=== PATIENT | female | born 1995 | race Caucasian/White ===

== ENCOUNTER 2019-10-07 06:03 | Day surgery (SDC) | payer OTHER, SELFPAY ==
[2019-09-23 10:01] VITALS: BMI 24.5
[2019-10-07 06:15] VITALS: BP 123/78; PULSE 86; RESP 18; TEMP 36.2; O2SAT 98
[2019-10-07 06:20] LABS: OR HCG Qualitative Urine Negative (Negative)
[2019-10-07] MEDS: sodium chloride 0.9% 1,000 ML 30 ML IV (06:28)
--- NOTE | 2019-10-07 06:48 | ANES.PREANE2 ---
Pre-Anesthetic Assessment Pre-Anesthetic Assessment: Height/Weight: Height 1.7 m Weight 71.214 kg Temp Pulse Resp BP Pulse Ox 97.2 F L 86 18 123/78 98 10/07/19 06:15 10/07/19 06:15 10/07/19 06:15 10/07/19 06:15 10/07/19 06:15 Preop Diagnosis: rlq pain Proposed Procedure: Operation Date: 10/07/19 07:00 Proposed Procedures p Colonoscopy 66861 R14.0(Not Applicable) - Neil Agosto MD Was Beta María Elena taken within 24 hours: N/A Last intake: Intake Last Liquid Date 10/06/19 Last Liquid Time 20:00 Last Solid Date 10/05/19 Last Solid Time 18:00 Social: Social History: Tobacco and No alcohol Exam: Pre-Anes Outpt Exam: alert, oriented x 3, clear to auscultation bilaterally and regular rate & rhythm Airway: Submandibular: WNL Cervical ROM: WNL MP: 1 Dentition: Chipped (upper back side) and Full Pulmonary: Pulmonary: None reported CV/HEM: CV/HEM: Arrythmia and Murmur Comments: admits to tachycardia and dizziness was on lisinopril and then on holter monitor but did not follow up because patient says they were too busy : : UTI Comments: macrobid and admits to kidney stones Hepatic: Hepatic: None reported GI: GI: None reported Metabolic: Metabolic: None reported Musc/skel: Musc/skel: None reported Neuropsych: Neuropsych: Anxiety, Depression and LAMAR (chronic migraines) Anesthetic Plan: ASA status: 2 Anesthesia: MAC Risk of > 500 ml blood loss (7ml/kg in children): No Meds/Allergies Current Medications: Current Medications Generic Name Dose Route Start Last Admin Trade Name Freq PRN Reason Stop Dose Admin Sodium Chloride 1,000 mls @ 30 ml s/hr 10/07/19 06:15 10/07/19 06:28 Sodium Chloride 0.9% IV 10/08/19 06:14 30 mls/hr .Q24H NENA Administration PFSH Anesthesia PFSH: Medical History (Updated 09/21/19 @ 13:03 by Neil Agosto MD) Pyelonephritis Renal and ureteric calculus Surgical History (Updated 09/19/19 @ 13:21 by Neil Agosto MD) History of ureter stent Hx of cholecystectomy Family History Mother Asthma Heart murmur Atrial fibrillation Denies family history of Anesthesia complication Bleeding disorder Social History Smoking and tobacco status: current some day smoker cigarettes Alcohol intake: never Household members: spouse Marital status: Current occupational status: employed History of recent travel: No Female Reproductive History: Date of last menstrual period: 09/15/19 Data Anesthesia Other Labs: Laboratory Results - last 48 hr 10/07/19 06:20 Urine HCG, Qual Negative Cardiac Studies: No Data to Display
--- NOTE | 2019-10-07 06:58 | W.PM.OPSUD ---
Surgery/Procedure H&P Update DATE OF PROCEDURE: October 07, 2019 DATE H&P PERFORMED: 09/19/19 H&P UPDATE INFORMATION: I have reviewed H&P completed within last 30 days, I have examined patient prior to procedure and No changes to prior documentation PREOP DIAGNOSIS: rlq pain PLANNED PROCEDURE: Operation Date: 10/07/19 07:00 Proposed Procedures p Colonoscopy 67915 R14.0(Not Applicable) - Neil Agosto MD
[2019-10-07 07:23] VITALS: BP 100/72; PULSE 91; RESP 16; TEMP 36.1; O2SAT 99
--- NOTE | 2019-10-07 07:25 | ANE.PACU2 ---
Inpatient post-anesthesia follow up: Airway intact: Yes Vital signs: Temperature 97.0 F Pulse Rate 91 Respiratory Rate 16 Blood Pressure 100/72 Pulse Oximetry 99 Oxygen Delivery Me thod Nasal Cannula Oxygen Flow Rate 3 Fraction of Inspir ed Oxygen Hydration adequate: Yes Nausea and vomiting: No Pain level: 1 Mental status: Baseline
[2019-10-07 07:29] VITALS: BP 104/77; PULSE 82; RESP 18; O2SAT 97
== END 2019-10-07 07:37 | disposition home or self-care (01) ==
PROVIDERS: Anesthesiology; PCP Nurse Practitioner Family; Visit Provider Surgery
PROC: 0DJD8ZZ Inspection of Lower Intestinal Tract, Via Natural or Artificial Opening Endoscopic (ICD-10-PCS; CPT 45378; principal; 2019-10-07 07:00)
DX: R10.31 Right lower quadrant pain (principal); R14.0 Abdominal distension (gaseous); F17.210 Nicotine dependence, cigarettes, uncomplicated
CPT/HCPCS: 12345; 45380; 84703; 88305; J2704; J7030

== ENCOUNTER 2020-04-14 14:31 | Outpatient (CLI) | payer OTHER, SELFPAY ==
--- NOTE | 2020-04-14 15:00 | XR_ITS ---
WS: [id number] KUB, AP view, 04/14/2020 Clinical Data: STONE Comparison: KUB, 12/26/2018. Findings: No abnormal intraabdominal masses are seen. There is no dilatated small bowel or evidence of obstruc tion. There is a calcification overlying the inferior pole of the left kidney which may be a renal calculus . There is a large amount of fecal material in the colon. There are clips in the right upper quadrant from cholecystectomy. XR/XR KUB [id number] Impression: Possible small left renal calculus.
== END 2020-04-14 14:32 | disposition home or self-care (01) ==
PROVIDERS: PCP Nurse Practitioner Family; Visit Provider Urology
DX: N20.9 Urinary calculus, unspecified (principal)
CPT/HCPCS: 74018; 81003; 87077; 87086; 87184

== ENCOUNTER 2020-08-24 19:02 | Emergency (ER) | payer OTHER, SELFPAY ==
[2020-08-24 19:12] VITALS: BP 102/70; PULSE 83; RESP 18; TEMP 36.1; O2SAT 99; BMI 20.3
--- NOTE | 2020-08-24 19:19 | ED_ITS ---
HPI - Headache General: Chief Complaint: Headache Stated Complaint: Pressure in Head Time Seen by Provider: 08/24/20 19:18 History of Present Illness: HPI Narrative: 24-year-old female comes in with right-sided head pain for about 1 month. Patient states for last 5 days it is worsened. Patient reports that this is worse than her usual migraines. Patient appears well. Patient appears in mild to moderate pain. Patient reports nothing improves or worsens pain. Patient does state this is different than her usual migraines. Patient denies taking routine medications. Patient is alert and oriented. MD elicited complaint: headache Review of Systems General: Reports: 10 or more systems reviewed and unremarkable except in HPI and below Neuro: Reports: headache(s) PFSH ED PFSH: Medical History Pyelonephritis Recurrent UTI Renal and ureteric calculus Renal stones Surgical History History of ureter stent Hx of cholecystectomy Status post colonoscopy (10/07/19) Family History Mother Asthma Heart murmur Atrial fibrillation Denies family history of Anesthesia complication Bleeding disorder Social History Smoking and tobacco status: current some day smoker cigarettes Alcohol intake: never Household members: spouse Marital status: Current occupational status: employed History of recent travel: No Female Reproductive History: Date of last menstrual period: 08/22/20 Physical Exam Const: COMMON NORMALS: no acute distress and patient oriented x3 GENERAL APPEARANCE: cooperative HENMT: COMMON NORMALS: normocephalic, TM's normal bilaterally and Normal external nose present HEAD & SCALP: normal to inspection and normocephalic NOSE: Normal external nose present TYMPANIC MEMBRANE: TM's normal bilaterally MOUTH: Normal oral and palatal mucosa present THROAT: posterior oropharynx normal Eye: GENERAL EYE: appearance normal, both eyes and all related structures Neck/C-Spine: COMMON NORMALS: full ROM Lymph: LYMPHATIC: no lymphadenopathy noted Chest: COMMONS NORMALS: normal inspection of the chest Resp: COMMON NORMALS: normal respiratory effort EFFORT & INSPECTION: Yes able to speak in complete sentences Cardio: COMMON NORMALS: regular rate and regular rhythm RATE: regular rate RHYTHM: regular rhythm GI: COMMON NORMALS: non-tender Back/Pelvis: COMMON NORMALS: thoracic and lumbar spine normal to inspection Extremity: COMMON NORMALS: normal to inspection Neuro: COMMON NORMALS: patient oriented x3 and moves all extremities Psych: COMMON NORMALS: mental status grossly normal and cooperative Skin: COMMON NORMALS: no rashes or lesions noted GENERAL SKIN EXAM: no rashes or lesions noted Course Vital Signs: Vital signs: Vital Signs Temperature 97.0 F L 08/24/20 19:12 Pulse Rate 73 08/24/20 20:05 Respiratory Rate 18 08/24/20 20:05 Blood Pressure 101/67 08/24/20 20:05 Pulse Oximetry 97 08/24/20 20:05 MDM - Headache MDM Narrative: Medical decision making narrative: 24-year-old female comes in for a feeling poorly, and having a headache. On exam patient appears mildly unwell. Respirations are even lungs are clear to auscultation. Skin is warm and dry. Pupils are equal reactive. No focal neural deficits are noted. Reflexes are normal. Abdomen soft nontender. Skin is warm and dry. Differential diagnosis includes viral syndrome, sinusitis, migraine headache, intracranial mass. CT of the head noted Chiari malformation and sinusitis. Laboratory values were unremarkable. Urinalysis showed nitrates and increase in white blood cells in urine. Patient was treated for UTI with ceftriaxone, was recommended to be treated for a sinus infection with azithromycin and Flonase. Patient was given diclofenac and promethazine for her headache. Patient was encouraged drink plenty of fluids and follow-up with primary care for further i nstruction. Patient reported understanding. Lab Data: Labs: Lab Results 08/24/20 08/24/20 08/24/20 Range/Units 19:40 19:40 19:40 WBC 8.1 (4.0-10.0) 10^3/ uL RBC 4.31 (4.1-5.3) 10^6/u L Hgb 12.5 (11.5-15.3) g/dL Hct 37.7 (37.0-47.0) % MCV 87.5 (81-99) fL MCH 29.0 (28.0-34.0) pg MCHC 33.2 (30.0-36.0) g/dL RDW 11.5 L (12.1-15.1) % Plt Count 211 (130-400) 10^3/c mm MPV 11.6 H (7.4-10.4) fL Neut % (Auto) 73.1 % Lymph % (Auto) 20.7 % Isabela % (Auto) 5.2 % Eos % (Auto) 0.4 % Baso % (Auto) 0.4 % Neut # (Auto) 5.93 (1.8-7.7) 10^3/u L Lymph # (Auto) 1.7 (0.8-4.8) 10^3/u L Isabela # (Auto) 0.4 (0.2-0.9) 10^3/u L Eos # (Auto) 0.0 (0.0-0.8) 10^3/u L Baso # (Auto) 0.0 (0.0-0.1) 10^3/u L Nucleated RBC % (a uto) 0 % Nucleated RBCs # 0.0 /100WBC Sodium 140 (136-145) mmol/L Potassium 3.9 (3.5-5.1) mmol/L Chloride 104 (98-107) mmol/L Carbon Dioxide 26 (22-29) mmol/L Anion Gap 13.9 (5-19) BUN 8 (6-20) mg/dL Creatinine 0.6 (0.5-0.9) mg/dL GFR Calculation 123.9 (90-130) mL/min Glucose 92 (65-115) mg/dL Calculated Osmolal ity 288 (285-295) mOsm/k g Calcium 9.1 (8.5-10.5) mg/dL Total Bilirubin 0.3 (0.15-1.2) mg/dL AST 18 (0-32) U/L ALT 15 (0-33) U/L Alkaline Phosphata se 98 (35-105) IU/L C-Reactive Protein 3.1 (0.0-4.9) mg/L Total Protein 7.4 (6.6-8.7) g/dL Albumin 4.7 (3.5-5.2) g/dL Globulin 2.7 (1.3-4.6) g/dL HCG, Qual Negative (Negative) Urine Color (Yellow) Urine Appearance (CLEAR) Urine pH (5-7) Ur Specific Gravit y (1.005-1.030) Urine Protein (Negative) Urine Glucose (UA) (Normal) Urine Ketones (Negative) Urine Blood (Negative) Urine Nitrate (Negative) Urine Bilirubin (Negative) Urine Urobilinogen (Negative) mg/dL Ur Leukocyte Jemima ase (Negative) Urine RBC (0-2) /hpf Urine WBC (0-5) /hpf Ur Squamous Epith Cells (0-5) /hpf Amorphous Sediment Urine Bacteria (NONE) /hpf Urine Mucus /hpf 08/24/20 Range/Units 20:30 WBC (4.0-10.0) 10^3/ uL RBC (4.1-5.3) 10^6/u L Hgb (11.5-15.3) g/dL Hct (37.0-47.0) % MCV (81-99) fL MCH (28.0-34.0) pg MCHC (30.0-36.0) g/dL RDW (12.1-15.1) % Plt Count (130-400) 10^3/c mm MPV (7.4-10.4) fL Neut % (Auto) % Lymph % (Auto) % Isabela % (Auto) % Eos % (Auto) % Baso % (Auto) % Neut # (Auto) (1.8-7.7) 10^3/u L Lymph # (Auto) (0.8-4.8) 10^3/u L Isabela # (Auto) (0.2-0.9) 10^3/u L Eos # (Auto) (0.0-0.8) 10^3/u L Baso # (Auto) (0.0-0.1) 10^3/u L Nucleated RBC % (a uto) % Nucleated RBCs # /100WBC Sodium (136-145) mmol/L Potassium (3.5-5.1) mmol/L Chloride (98-107) mmol/L Carbon Dioxide (22-29) mmol/L Anion Gap (5-19) BUN (6-20) mg/dL Creatinine (0.5-0.9) mg/dL GFR Calculation (90-130) mL/min Glucose (65-115) mg/dL Calculated Osmolal ity (285-295) mOsm/k g Calcium (8.5-10.5) mg/dL Total Bilirubin (0.15-1.2) mg/dL AST (0-32) U/L ALT (0-33) U/L Alkaline Phosphata se (35-105) IU/L C-Reactive Protein (0.0-4.9) mg/L Total Protein (6.6-8.7) g/dL Albumin (3.5-5.2) g/dL Globulin (1.3-4.6) g/dL HCG, Qual (Negative) Urine Color Yellow (Yellow) Urine Appearance Sl hazy (CLEAR) Urine pH 7 (5-7) Ur Specific Gravit y 1.010 (1.005-1.030) Urine Protein Neg (Negative) Urine Glucose (UA) Norm (Normal) Urine Ketones Negative (Negative) Urine Blood Neg (Negative) Urine Nitrate Positive H (Negative) Urine Bilirubin Neg (Negative) Urine Urobilinogen Norm (Negative) mg/dL Ur Leukocyte Jemima ase Negative (Negative) Urine RBC 0-4 H (0-2) /hpf Urine WBC 25-40 H (0-5) /hpf Ur Squamous Epith Cells 0-4 H (0-5) /hpf Amorphous Sediment Not Reportable Urine Bacteria 4+ H (NONE) /hpf Urine Mucus Trace /hpf Discharge Plan Discharge Patient Disposition: Home Clinical Impression: Sinusitis Qualifiers: Sinusitis location: ethmoidal Chronicity: acute Recurrence: not specified as recurrent Qualified Code(s): J01.20 - Acute ethmoidal sinusitis, unspecified Headache Qualifiers: Headache type: unspecified Headache chronicity pattern: unspecified pattern Intractability: not intractable Qualified Code(s): R51.9 - Headache, unspecified Condition: Stable Prescriptions: New azithromycin 250 mg tablet See Rx Instructions .ROUTE .COMPLEX Qty: 6 RF: 0 Flonase Allergy Relief 50 mcg/actuation spray,suspension 1 spray intranasal BID Qty: 16 RF: 0 diclofenac sodium 75 mg tablet,delayed release (DR/EC) 75 mg PO BID PRN (Reason: headache) Qty: 10 RF: 0 promethazine 25 mg tablet 25 mg PO BID PRN (Reason: nausea and vomiting) Qty: 10 RF: 0 Discharge Orders: Discharge ED (Routine); Ordered 08/24/20 Ordered By: Chris Palm Referrals: Audrey Altman FNP [Primary Care Provider] - Discharge Diet: Usual diet Discharge Activity: Increase activity as tolerated Patient Instructions: Sinusitis (ED), Opioid Safety Activity Restrictions/Additional Instructions: Drink plenty of fluids. Medications as directed. Follow-up with primary care for further instruction. Wear a mask around other individuals until your symptoms resolve. Most likely this is a sinus infection secondary to a viral syndrome, the antibiotic should help with resolution of the symptoms. The Flonase will help with symptoms such as sinus swelling and inflammation. Use the diclofenac and promethazine for headache control. Promethazine may make you sleepy and you should not use it within 8 hours of operating equipment or heavy machinery. Coding Level of Care Code ED Territory Sales Representative for Chg Fwd Exam Comprehensive
--- NOTE | 2020-08-24 19:19 | CTR_ITS ---
PROCEDURE INFORMATION: Exam: CT Head Without Contrast Exam date and time: 08/24/2020 7:19 PM Age: 24 years old Clinical indication: Pain; Dizziness and malaise or fatigue; Headache; Additional info: Persistent headache for one month TECHNIQUE: Imaging protocol: Computed tomography of the head without contrast. Sagittal and coronal reformatted images were created and reviewed. Radiation optimization: All CT scans at this facility use at least one of these dose optimization techniques: automated exposure control; mA and/or kV adjustment per patient size (includes targeted exams where dose is matched to clinical indication); or iterative reconstruction. COMPARISON: CT head wo con* [id number] 04/20/2018 1:14 PM RADIATION DOSE METRICS: Total DLP (mGy-cm): 759.27 FINDINGS: Brain: No acute intracranial hemorrhage. No acute infarct. No intra-axial or extra-axial masses. Lopez-white matter differentiation is preserved. No cerebral edema. No extra-axial fluid collections. No midline shift. No evidence for Chiari 1 malformation. Cerebral ventricles: No hydrocephalus. Paranasal sinuses: Mild to moderate mucoperiosteal thickening in the visualized frontal, ethmoid, and right sphenoid sinus. Mastoid air cells: Unremarkable as visualized. Orbital cavity: No acute abnormality in the visualized orbits. Bones/joints: Mild left nasal septal deviation. Soft tissues: No acute abnormality of the extracranial soft tissues. CT/CT head wo con* [id number] IMPRESSION: 1. No acute abnormality of the brain. 2. Mild to moderate mucoperiosteal thickening in the visualized frontal, ethmoid, and right sphenoid sinus. 3. Incidental/nonacute findings are listed in the report. Radiation Dose CTDIVOL = (mGy): DLP = 759.27 (mGy-cm)
[2020-08-24] MEDS: dexamethasone 4 mg/mL INJ IVP (19:44)
[2020-08-24] MEDS: ketorolac 30 mg/mL INJ 15 MG IVP (19:44)
[2020-08-24] MEDS: diphenhydrAMINE 50 mg/mL SDV 1mL 12.5 MG IVP (19:44)
[2020-08-24] MEDS: metoclopramide 5 mg/mL SDV 2 mL 10 MG IVP (19:45)
[2020-08-24 19:47] LABS: Basophils % 0.4 %; Eosinophils % 0.4 %; Hematocrit 37.7 % (37.0-47.0); Hemoglobin 12.5 g/dL (11.5-15.3); Lymphocytes # 1.7 10^3/uL (0.8-4.8); Lymphocytes % 20.7 %; Mean Corpuscular HGB Conc 33.2 g/dL (30.0-36.0); Mean Corpuscular Volume 87.5 fL (81-99); Mean Platelet Volume 11.6 fL (7.4-10.4); Monocytes # 0.4 10^3/uL (0.2-0.9); Monocytes % 5.2 %; Neutrophils # 5.93 10^3/uL (1.8-7.7); Neutrophils % 73.1 %; Nucleated Red Blood Cells % 0 %; Platelet Count 211 10^3/cmm (130-400); Red Blood Count 4.31 10^6/uL (4.1-5.3); Red Cell Distribution Width 11.5 % (12.1-15.1); White Blood Count 8.1 10^3/uL (4.0-10.0)
[2020-08-24] MEDS: sodium chloride 0.9% 500 ML 999 ML IV (19:55)
[2020-08-24 20:05] VITALS: BP 101/67; PULSE 73; RESP 18; O2SAT 97
[2020-08-24 20:10] LABS: HCG, Serum Qual Negative (Negative)
[2020-08-24 20:16] LABS: Alanine Aminotransferase 15 U/L (0-33); Albumin Level 4.7 g/dL (3.5-5.2); Alkaline Phosphatase 98 IU/L (35-105); Blood Urea Nitrogen 8 mg/dL (6-20); C Reactive Protein 3.1 mg/L (0.0-4.9); Calcium 9.1 mg/dL (8.5-10.5); Carbon Dioxide 26 mmol/L (22-29); Chloride 104 mmol/L (98-107); Globulin 2.7 g/dL (1.3-4.6); Glomerular Filtration Rate 123.9 mL/min (90-130); Glucose 92 mg/dL (65-115); Osmolality Calculated 288 mOsm/kg (285-295); Sodium 140 mmol/L (136-145); Total Bilirubin 0.3 mg/dL (0.15-1.2); Total Protein 7.4 g/dL (6.6-8.7)
[2020-08-24 20:31] LABS: Anion Gap 13.9 (5-19); Aspartate Amino Transferase 18 U/L (0-32); Potassium 3.9 mmol/L (3.5-5.1)
[2020-08-24 20:52] LABS: Add Urine Culture? Yes; Add Urine Microscopic? YES; Bacteria Urine 4+ /hpf; Bilirubin Urine Neg (Negative); Blood Urine Neg (Negative); Glucose Urine UA Norm (Normal); Ketones Urine Negative (Negative); Leukocyte Esterase Urine Negative (Negative); Mucus Urine TRACE /hpf; Nitrate Urine Positive (Negative); Protein Urine Neg (Negative); RBC Urine 0-4 /hpf (0-2); Squamous Epithelial Cell Urine 0-4 /hpf (0-5); Urine Appearance SL Hazy (CLEAR); Urine Color Yellow (Yellow); Urobilinogen Urine Norm (Negative); WBC Urine 25-40 /hpf (0-5); pH Urine 7 (5-7)
[2020-08-24] MEDS: cefTRIAXone 1,000 MG in sodium chloride 0.9% (plus) 50 ML 100 MG IV (21:08)
[2020-08-24 21:14] VITALS: BP 90/49; PULSE 68; RESP 18; O2SAT 98
[2020-08-24 22:26] VITALS: BP 102/62; PULSE 73; RESP 18; O2SAT 99
== END 2020-08-24 22:00 | disposition home or self-care (01) ==
PROVIDERS: Emergency Provider Nurse Practitioner Family; PCP Nurse Practitioner Family
DX: J01.20 Acute ethmoidal sinusitis, unspecified (principal); R51.9 Headache, unspecified; F17.210 Nicotine dependence, cigarettes, uncomplicated
CPT/HCPCS: 70450; 80053; 81001; 84703; 85025; 86140; 87077; 87086; 87186; 96365; 96375; 99284; J0696; J1100; J1200; J1885; J2765; J7040

== ENCOUNTER 2020-11-11 14:20 | Emergency (ER) | payer MEDICAID, SELFPAY ==
[2020-11-11 14:45] VITALS: BP 112/71; PULSE 84; RESP 19; TEMP 36.9; O2SAT 98; BMI 18.3
--- NOTE | 2020-11-11 16:22 | USR_ITS ---
PROCEDURE INFORMATION: Exam: US , Transvaginal Exam date and time: 11/11/2020 4:22 PM Age: 25 years old Clinical indication: complicated by abdominal or pelvic pain; Lower; First trimester (<14 weeks 0 days); Gestational age or lmp: 7w0d; ; Additional info: Approx 7 wks preg; Dizzy/pain; R/O ectopic TECHNIQUE: Imaging protocol: Real-time transvaginal obstetrical ultrasound of the maternal pelvis with image documentation. Transvaginal imaging was used for better evaluation of the fetus, adnexa, and/or cervix. Total images: 91 COMPARISON: US OB >14 Weeks [id number] 08/27/2017 11:59 AM FINDINGS: Gestation: Single early intrauterine gestational sac containing a pole and normal size yolk sac. Measured age by crown rump length 7 weeks 0 days. Gestational sac size 3.4 cm x 2.9 cm x 2.5 cm equating to 7 weeks 6 days. heart rate: Positive cardiac activity at 138 bpm and regular. Placenta: No visible subchorionic fluid. BIOMETRY: Estimated due date (AUA): JOÃO 08/30/2021. MATERNAL: Right adnexa: Right ovary sonographically normal. Right ovarian dimensions are approximately 2.5 cm x 2 cm x 2 cm. Normal follicle cysts. Positive arterial flow to both color and Doppler assessment. No visible right adnexal mass or cystic lesion. No free fluid in the right adnexa. Left adnexa: Left ovary sonographically normal dimensions approximately 3.6 cm x 2.8 cm x 3.3 cm period Positive arterial flow to both color and Doppler assessment. Small involuting corpus luteal cyst. No visible left adnexal mass or cystic lesion. No free fluid in the left adnexa. US/US OB transvaginal [id number] IMPRESSION: Single early intrauterine gestation with positive cardiac activity a measured age by crown rump length 7 weeks 0 days.
[2020-11-11 17:30] LABS: Add Urine Microscopic? NO; Charge for UA Resulting for Rev
[2020-11-11 17:46] LABS: Bilirubin Urine Neg (Negative); Blood Urine Neg (Negative); Glucose Urine UA Norm (Normal); Ketones Urine Negative (Negative); Leukocyte Esterase Urine Negative (Negative); Nitrate Urine Negative (Negative); Protein Urine Neg (Negative); Specific Gravity, Urine 1.005 (1.005-1.030); Urine Appearance Clear (CLEAR); Urine Color Straw (Yellow); Urobilinogen Urine Norm (Negative); pH Urine 7 (5-7)
--- NOTE | 2020-11-11 17:46 | W.ED.DIZZY ---
HPI - Dizziness General: Chief Complaint: Dizziness Stated Complaint: DIZZY, 7 WKS Time Seen by Provider: 11/11/20 14:33 History of Present Illness: HPI Narrative: Patient is a 25-year-old at approximately 7 weeks . She is here with complaints of 2 weeks of feeling like she is going to blackout. She is tunnel vision sensation of uneasiness and instability. Has not had any room spinning vertigo. Has not had any syncopal episodes. Worse the last 2 days. Worse with activity better with rest. No history of chest pain shortness of breath she does not have any history of congenital heart disease or family history Denies fevers chills chest pain nausea vomiting diarrhea altered mental status or syncope. Review of Systems General: Reports: 10 or more systems reviewed and unremarkable except in HPI and below PFSH ED PFSH: Medical History Pyelonephritis Recurrent UTI Renal and ureteric calculus Renal stones Surgical History History of ureter stent Hx of cholecystectomy Status post colonoscopy (10/07/19) Family History Mother Asthma Heart murmur Atrial fibrillation Denies family history of Anesthesia complication Bleeding disorder Social History Smoking and tobacco status: current some day smoker cigarettes Alcohol intake: never Household members: spouse Marital status: Current occupational status: employed History of recent travel: No Female Reproductive History: Date of last menstrual period: 09/20/20 Physical Exam Const: COMMON NORMALS: no acute distress, average body habitus, patient oriented x3 and alert EXAM LIMITATIONS: no altered mental status ORIENTATION/CONSCIOUSNESS: Yes oriented to person, Yes oriented to place and Yes oriented to time OTHER: Well-appearing alert oriented HENMT: COMMON NORMALS: normocephalic, atraumatic, hearing grossly normal bilaterally, external ears normal, EAC's normal, Normal external nose present, Normal nasal mucous membranes and turbinates present, moist oral mucous membranes, oropharynx normal, dentition normal and gingiva normal HEAD & SCALP: normocephalic and atraumatic NOSE: Normal external nose present and Normal nasal mucous membranes and turbinates present EXTERNAL EAR: Yes external ears normal EXTERNAL AUDITORY CANAL: EAC's normal Eye: COMMON NORMALS: Equal, round and reactive pupils present, EOMs intact bilaterally, conjunctivae normal and no scleral icterus GENERAL EYE: appearance normal, both eyes and all related structures CONJUNCTIVA: Yes conjunctivae normal PUPIL: Yes Equal, round and reactive pupils present Neck/C-Spine: COMMON NORMALS: no meningeal signs and no JVD Chest: COMMONS NORMALS: normal inspection of the chest Resp: COMMON NORMALS: normal respiratory effort, No retractions, No use of accessory muscles and clear to auscultation bilaterally AUSCULTATION: clear to auscultation bilaterally Cardio: COMMON NORMALS: no JVD, regular rate, regular rhythm, S1 normal heart sound present, S2 normal heart sound present and No murmurs present (Cardio) RATE: regular rate RHYTHM: regular rhythm HEART SOUNDS: S1 normal heart sound present and S2 normal heart sound present Extremity: COMMON NORMALS: normal to inspection, full ROM, capillary refill normal, no joint enlargement, no clubbing, cyanosis or edema, no calf tenderness and no pedal edema Neuro: COMMON NORMALS: patient oriented x3, CN's II-XII intact bilaterally, moves all extremities, no focal motor deficits, no sensory deficits noted, deep tendon reflexes 2+ bilaterally and gait normal SENSORIUM/ORIENTATION: Yes alert, Yes oriented to person, Yes oriented to place and Yes oriented to time MENINGEAL SIGNS: Yes no meningeal signs CRANIAL NERVES: Yes CN normal except as noted SPEECH: speech normal SENSORY EXAM: Yes Normal double simultaneous stimulation for sensation Psych: COMMON NORMALS: mental status grossly normal Skin: COMMON NORMALS: no rashes or lesions noted GENERAL SKIN EXAM: no rashes or lesions noted Course ED course: Patient's labs were normal. She does states she has had documented intrauterine . Given her near syncopal episodes I do some concern about a possible heterotopic pregnancies will go ahead and get an abdominal ultrasound on her. EKG normal labs are essentially normal as well. Patient is awake alert and oriented seems to be doing quite a bit better after just some time resting and there bed Ultrasound showed a single 7-week gestational age intrauterine . No signs of free fluid or any other lesions suspicious of a heterotopic . Patient's etiology seems benign we will have her follow-up with her primary care provider Vital Signs: Vital signs: Vital Signs Temperature 98.5 F 11/11/20 14:45 Pulse Rate 84 11/11/20 14:45 Respiratory Rate 19 H 11/11/20 14:45 Blood Pressure 112/71 11/11/20 14:45 Pulse Oximetry 98 11/11/20 14:45 MDM - Dizziness MDM Narrative: Medical decision making narrative: Patient is a 25-year-old 7 weeks here with near syncopal episodes Differential includes anemia, ectopic/heterotopic , dehydration Lab Data: Labs: Lab Results 11/11/20 11/11/20 11/11/20 17:00 17:49 17:49 WBC 5.1 10^3/uL 10^3/ uL (4.0-10.0) RBC 3.69 10^6/uL L 10 ^6/uL (4.1-5.3) Hgb 10.9 g/dL L g/dL (11.5-15.3) Hct 31.9 % L % (37.0-47.0) MCV 86.4 fl fl (81-99) MCH 29.5 pg pg (28.0-34.0) MCHC 34.2 g/dL g/dL (30.0-36.0) RDW 11.2 % L % (12.1-15.1) Plt Count 143 10^3/cmm 10^3 /cmm (130-400) MPV 11.4 fL H fL (7.4-10.4) Neut % (Auto) 60.8 % % Lymph % (Auto) 31.5 % % [place] % (Auto) 6.1 % % Eos % (Auto) 0.8 % % Baso % (Auto) 0.6 % % Neut # (Auto) 3.07 10^3/uL 10^3 /uL (1.8-7.7) Lymph # (Auto) 1.6 10^3/uL 10^3/ uL (0.8-4.8) [place] # (Auto) 0.3 10^3/uL 10^3/ uL (0.2-0.9) Eos # (Auto) 0.0 10^3/uL 10^3/ uL (0.0-0.8) Baso # (Auto) 0.0 10^3/uL 10^3/ uL (0.0-0.1) Nucleated RBC % (a uto) 0 % % Nucleated RBCs # 0.0 /100WBC /100W BC Sodium 139 mmol/L mmol/L (136-145) Potassium 3.6 mmol/L mmol/L (3.5-5.1) Chloride 103 mmol/L mmol/L (98-107) Carbon Dioxide 24 mmol/L mmol/L (22-29) Anion Gap 15.6 (5-19) BUN 6 mg/dL mg/dL (6-20) Creatinine 0.3 mg/dL L mg/dL (0.5-0.9) GFR Calculation 273.3 mL/min H mL /min (90-130) Glucose 79 mg/dL mg/dL (65-115) Calculated Osmolal ity 285 mOsm/kg mOsm/ kg (285-295) Calcium 9.0 mg/dL mg/dL (8.5-10.5) Total Bilirubin 0.2 mg/dL mg/dL (0.15-1.2) AST 12 U/L U/L (0-32) ALT 11 U/L U/L (0-33) Alkaline Phosphata se 52 IU/L IU/L (35-105) Total Protein 6.8 g/dL g/dL (6.6-8.7) Albumin 4.2 g/dL g/dL (3.5-5.2) Globulin 2.6 g/dL g/dL (1.3-4.6) Ser , [place]Qnt 62766.00 mIU/mL m IU/mL Urine Color Straw (Yellow) Urine Appearance Clear (CLEAR) Urine pH 7 (5-7) Ur Specific Gravit y 1.005 (1.005-1.030) Urine Protein Neg (Negative) Urine Glucose (UA) Norm (Normal) Urine Ketones Negative (Negative) Urine Blood Neg (Negative) Urine Nitrate Negative (Negative) Urine Bilirubin Neg (Negative) Urine Urobilinogen Norm mg/dL mg/dL (Negative) Ur Leukocyte Jemima ase Negative (Negative) EKG Data^: EKG 1: Attestation: I personally reviewed and interpreted this EKG as follows: EKG interpretation date: 11/11/20 EKG interpretation time: 20:35 Other EKG comments: Normal sinus rhythm no evidence of ischemia or infarct normal axis ease vent rate 65 normal intervals no signs of ischemia or infarct Discharge Plan Discharge Patient Disposition: Home Clinical Impression: Postural dizziness with near syncope Condition: Stable Prescriptions: No Action azithromycin 250 mg tablet See Rx Instructions .ROUTE .COMPLEX Qty: 6 RF: 0 Flonase Allergy Relief 50 mcg/actuation spray,suspension 1 spray intranasal BID Qty: 16 RF: 0 diclofenac sodium 75 mg tablet,delayed release (DR/EC) 75 mg PO BID PRN (Reason: headache) Qty: 10 RF: 0 promethazine 25 mg tablet 25 mg PO BID PRN (Reason: nausea and vomiting) Qty: 10 RF: 0 Discharge Orders: Discharge ED (Routine); Ordered 11/11/20 Ordered By: Gallo Luevano Referrals: Audrey Altman FNP [Primary Care Provider] - Patient Instructions: Lightheadedness (ED) Activity Restrictions/Additional Instructions: Follow-up with your primary care provider in 3 to 5 days, return with any new or worsening symptoms Coding Level of Care Code ED Paper Pattern Folder for Chg Fwd Exam Comprehensive
[2020-11-11 18:13] LABS: Basophils % 0.6 %; Eosinophils % 0.8 %; Hematocrit 31.9 % (37.0-47.0); Hemoglobin 10.9 g/dL (11.5-15.3); Lymphocytes # 1.6 10^3/uL (0.8-4.8); Lymphocytes % 31.5 %; Mean Corpuscular HGB Conc 34.2 g/dL (30.0-36.0); Mean Corpuscular Hemoglobin 29.5 pg (28.0-34.0); Mean Corpuscular Volume 86.4 fl (81-99); Mean Platelet Volume 11.4 fL (7.4-10.4); Monocytes # 0.3 10^3/uL (0.2-0.9); Monocytes % 6.1 %; Neutrophils # 3.07 10^3/uL (1.8-7.7); Neutrophils % 60.8 %; Nucleated Red Blood Cells % 0 %; Platelet Count 143 10^3/cmm (130-400); Red Blood Count 3.69 10^6/uL (4.1-5.3); Red Cell Distribution Width 11.2 % (12.1-15.1); White Blood Count 5.1 10^3/uL (4.0-10.0)
[2020-11-11 18:53] LABS: Alanine Aminotransferase 11 U/L (0-33); Albumin Level 4.2 g/dL (3.5-5.2); Alkaline Phosphatase 52 IU/L (35-105); Anion Gap 15.6 (5-19); Aspartate Amino Transferase 12 U/L (0-32); Blood Urea Nitrogen 6 mg/dL (6-20); Carbon Dioxide 24 mmol/L (22-29); Chloride 103 mmol/L (98-107); Globulin 2.6 g/dL (1.3-4.6); Glomerular Filtration Rate 273.3 mL/min (90-130); Glucose 79 mg/dL (65-115); Osmolality Calculated 285 mOsm/kg (285-295); Potassium 3.6 mmol/L (3.5-5.1); Sodium 139 mmol/L (136-145); Total Bilirubin 0.2 mg/dL (0.15-1.2); Total Protein 6.8 g/dL (6.6-8.7)
--- NOTE | 2020-11-11 19:25 | USR_ITS ---
PROCEDURE INFORMATION: Exam: US , Limited Exam date and time: 11/11/2020 7:25 PM Age: 25 years old Clinical indication: complicated by abdominal or pelvic pain; Lower; First trimester (<14 weeks 0 days); Gestational age or lmp: 7 w 1 day; ; Additional info: Known iup - HX of near syncope -0 look for heterotopic TECHNIQUE: Imaging protocol: Real-time ultrasound of the maternal uterus with image documentation. Exam focused on the clinical indication. Total images: 31 COMPARISON: US OB <=14 wk fetus w transvag 11/11/2020 4:42 PM FINDINGS: Gestation: Single live intrauterine gestation. Measured age by crown rump length 7 weeks 1 day. Normal size yolk sac. heart rate: cardiac activity 153 beats minute. Placenta: Interval development of a large volume subchorionic fluid collection, presumed subchorionic hemorrhage, since last examination. BIOMETRY: Estimated due date (AUA): JOÃO 06/29/2021. MATERNAL: Right adnexa: Right ovary again identified and appears sonographically normal. Dimensions this examination right ovary 2.5 cm x 1.6 cm x 2.5 cm. Positive arterial flow to both color and Doppler assessment right ovary. Left adnexa: Left ovary sonographically normal. Dimensions this examination left ovary 2.9 cm x 2 cm x 2.7 cm. Involuting corpus luteal cyst. Positive arterial flow to both color and Doppler assessment. US/US OB limited [id number] IMPRESSION: 1. Interval development of a large volume subchorionic fluid collection, presumed subchorionic hemorrhage, since last examination. 2. Increased risk for spontaneous .
[2020-11-11] MEDS: lactated ringers 1,000 ML 30 ML IV (20:12)
[2020-11-11 21:16] VITALS: BP 110/79; PULSE 79; RESP 16; O2SAT 99
== END 2020-11-11 21:10 | disposition home or self-care (01) ==
PROVIDERS: Physician Assistant; Emergency Provider Family Medicine; PCP Nurse Practitioner Family
DX: R55 Syncope and collapse (principal); R42 Dizziness and giddiness; F17.210 Nicotine dependence, cigarettes, uncomplicated
CPT/HCPCS: 76815; 76817; 80053; 81003; 84702; 85025; 96360; 99283

== ENCOUNTER → 2020-11-12 08:03 | Outpatient (BNVA) | payer OTHER, SELFPAY | PROVIDERS: PCP Nurse Practitioner Family; Visit Provider Psychiatry & Neurology Psychiatry | DX: F41.1 Generalized anxiety disorder (principal) | CPT/HCPCS: 90792 ==

== ENCOUNTER → 2021-01-26 09:29 | Outpatient (BNVA) | payer MEDICAID, SELFPAY | PROVIDERS: PCP Nurse Practitioner Family; Visit Provider Counselor Professional | DX: F41.1 Generalized anxiety disorder (principal); F32.9 Major depressive disorder, single episode, unspecified | CPT/HCPCS: 90834 ==

== ENCOUNTER → 2021-03-11 08:33 | Outpatient (BNVA) | payer MEDICAID, SELFPAY | PROVIDERS: PCP Nurse Practitioner Family; Visit Provider Counselor Professional | DX: F41.1 Generalized anxiety disorder (principal); F32.9 Major depressive disorder, single episode, unspecified | CPT/HCPCS: 90837; 90834 ==

== ENCOUNTER → 2021-03-30 09:48 | Outpatient (BNVA) | payer MEDICAID, SELFPAY | PROVIDERS: PCP Nurse Practitioner Family; Visit Provider Counselor Professional | DX: F41.1 Generalized anxiety disorder (principal); F32.9 Major depressive disorder, single episode, unspecified | CPT/HCPCS: 90834 ==

== ENCOUNTER → 2021-04-15 09:00 | Outpatient (BNVA) | payer OTHER, MEDICAID, SELFPAY | PROVIDERS: PCP Nurse Practitioner Family; Visit Provider Counselor Professional | DX: F41.1 Generalized anxiety disorder (principal); F32.9 Major depressive disorder, single episode, unspecified | CPT/HCPCS: 90834 ==

== ENCOUNTER 2021-06-11 22:24 | Emergency (ER) | payer MEDICAID, SELFPAY ==
[2021-06-11 22:28] VITALS: BP 124/85; PULSE 90; RESP 18; TEMP 36.6; O2SAT 99; BMI 20.5
--- NOTE | 2021-06-12 | CTR_ITS ---
PROCEDURE INFORMATION: Exam: CT Abdomen And Pelvis With Contrast Exam date and time: 06/12/2021 12:22 AM Age: 25 years old Clinical indication: Abdominal pain; Localized; Lower; Prior surgery; Surgery date: <1 month; Patient HX: C/O abd pain and bulging at site; Additional info: Abd pain post c section TECHNIQUE: Imaging protocol: Computed tomography of the abdomen and pelvis with contrast. Radiation optimization: All CT scans at this facility use at least one of these dose optimization techniques: automated exposure control; mA and/or kV adjustment per patient size (includes targeted exams where dose is matched to clinical indication); or iterative reconstruction. Contrast material: OMNI 300; Contrast volume: 95 ml; Contrast route: INTRAVENOUS (IV); COMPARISON: CT abdomen wo con [id number] 08/22/2018 1:35 PM RADIATION DOSE METRICS: Total DLP (mGy-cm): 902.93 FINDINGS: Liver: Normal. No mass. Gallbladder and bile ducts: Status post cholecystectomy. Pancreas: Normal. No ductal dilation. Spleen: Normal. No splenomegaly. Adrenal glands: Normal. No mass. Kidneys and ureters: There are bilateral hypoattenuation cystic lesions seen within the kidneys compatible with simple cysts. The largest is seen on the left measuring 6.5 mm. There are 2 nonobstructing left renal calculi present, the largest measuring 2.5 mm. Stomach and bowel: Unremarkable. No obstruction. No mucosal thickening. Appendix: No evidence of appendicitis. Intraperitoneal space: Unremarkable. No free air. No significant fluid collection. Vasculature: Unremarkable. No abdominal aortic aneurysm. Lymph nodes: Unremarkable. No enlarged lymph nodes. Urinary bladder: Unremarkable as visualized. Reproductive: The uterus is retroflexed. Bones/joints: Unremarkable. No acute fracture. Soft tissues: There is an irregular fluid attenuation collection seen in the subcutaneous fat and fascia in transverse orientation measuring approximately 7.2 cm in transverse dimension by 2.4 cm craniocaudal dimension and 1.8 cm AP dimension likely representing a postoperative seroma within the incision site. There is a prominent properitoneal abnormal fluid collection seen exhibiting some peripheral enhancement and containing some gas densities measuring 10 cm transverse dimension by 4 cm AP dimension and 7 cm craniocaudal dimension. On the midline, the the fluid collection extends into the fascial planes investing the rectus musculature measuring approximately 1.2 cm in AP depth by 7.3 cm transverse dimension and 7.[address]/CT abdomen pelvis w con* [id number] IMPRESSION: 1. Multilevel abnormal fluid collections and abscess formation seen in the lower anterior pelvic wall extending from the subcutaneous tissues through the investing fascia of the rectus musculature and within the properitoneal space as described above. 2. Bilateral benign renal cysts, the largest seen on the left measuring 6.5 mm. No further workup needed. 3. Two nonobstructing left renal calculi, the largest measuring 2.5 mm. COMMENTS: Consistent with the [employer]'s Incidental Findings Committee white paper (J Am Tae Radiol 2018): Any incidental renal lesion less than 1 cm or classified as too small to characterize, or any incidental cystic renal lesion characterized as simple-appearing, is likely benign. No follow-up imaging is recommended for these lesions per consensus recommendations based on imaging criteria.
[2021-06-12] MEDS: iohexol 300 mg/mL 100 mL Btl IV (00:22)
[2021-06-12 00:47] VITALS: BP 106/62; PULSE 65; RESP 16; O2SAT 98
[2021-06-12 01:25] LABS: Bilirubin Urine Neg (Negative); Blood Urine Neg (Negative); Glucose Urine UA Norm (Normal); Ketones Urine Negative (Negative); Leukocyte Esterase Urine Negative (Negative); Nitrate Urine Positive (Negative); Protein Urine Neg (Negative); Specific Gravity, Urine 1.005 (1.005-1.030); Urine Appearance Clear (CLEAR); Urine Color Yellow (Yellow); Urobilinogen Urine Norm (Negative); pH Urine 7 (5-7)
[2021-06-12 01:30] VITALS: BP 98/71; PULSE 63; RESP 20; O2SAT 98
[2021-06-12 01:53] LABS: Basophils # 0.1 10^3/uL (0.0-0.1); Eosinophils # 0.2 10^3/uL (0.0-0.8); Eosinophils % 2.2 %; Hematocrit 30.3 % (37.0-47.0); Lymphocytes # 2.5 10^3/uL (0.8-4.8); Lymphocytes % 36.6 %; Mean Corpuscular Hemoglobin 29.4 pg (28.0-34.0); Mean Corpuscular Volume 89.1 fl (81-99); Mean Platelet Volume 9.5 fL (7.4-10.4); Monocytes # 0.5 10^3/uL (0.2-0.9); Monocytes % 6.9 %; Neutrophils # 3.68 10^3/uL (1.8-7.7); Nucleated Red Blood Cells % 0 %; Platelet Count 348 10^3/cmm (130-400); Red Cell Distribution Width 12.1 % (12.1-15.1); White Blood Count 6.9 10^3/uL (4.0-10.0)
[2021-06-12 02:19] LABS: Lactic Sepsis W/Reflex 0.5 mmol/L (0.5-2.2)
[2021-06-12 02:20] LABS: Alanine Aminotransferase 10 U/L (0-33); Albumin Level 3.5 g/dL (3.5-5.2); Alkaline Phosphatase 99 IU/L (35-105); Anion Gap 12.9 (5-19); Aspartate Amino Transferase 26 U/L (0-32); Blood Urea Nitrogen 15 mg/dL (6-20); Calcium 8.7 mg/dL (8.5-10.5); Carbon Dioxide 24 mmol/L (22-29); Chloride 105 mmol/L (98-107); Globulin 3.4 g/dL (1.3-4.6); Glomerular Filtration Rate 151.6 mL/min (90-130); Glucose 99 mg/dL (65-115); Lipase 51 U/L (13-60); Osmolality Calculated 287 mOsm/kg (285-295); Potassium 3.9 mmol/L (3.5-5.1); Sodium 138 mmol/L (136-145); Total Bilirubin 0.2 mg/dL (0.15-1.2); Total Protein 6.9 g/dL (6.6-8.7)
[2021-06-12 02:30] VITALS: BP 113/76; PULSE 71; RESP 18; O2SAT 98
--- NOTE | 2021-06-12 02:30 | ED_ITS ---
HPI - Abdominal Pain General: Chief Complaint: Abdominal Pain Stated Complaint: C section pains Time Seen by Provider: 06/11/21 23:40 Source: patient History of Present Illness: 25-year-old female presenting 2.5 weeks after a C- section she had in [place]. She notes that she had hemorrhage , and had to be transfused in the hospital. Afterward, she developed bruising, some swelling, and pain to her abdomen superior to her incision site. This seemed to worsen for a few days, and then stabilized and improved. The past 2 days, however, it has become worse. She had contacted her physician, but had not gotten through for follow-up. She notes a few days ago she developed a fever as high as 101. This seemed to go away on its own. Currently, she complains of pain, generalized malaise. She has had minimal vaginal bleeding. MD elicited complaint: abdominal pain Pertinent past history: other Onset (ago): day(s) Pain Consistency: constant Location: Suprapubic Quality: stabbing and aching Radiation: none Migration to: no migration Exacerbating factors: movement Relieving factors: other (Tylenol and ibuprofen to some degree) Context: recent surgery/procedure Associated Symptoms: Reports nausea; Denies constipation, diarrhea, dysuria, fever(s), hematuria, hematemesis and vomiting Related Data: Date of Last Menstrual Period: 09/20/20 Review of Systems Const: Denies: fever(s) Card: Denies: chest pain Resp: Denies: dyspnea GI: Reports: nausea; Denies: vomiting, hematemesis, diarrhea or constipation : Denies: dysuria or hematuria Musc: Denies: back pain PFS ED PFSH: Medical History Psychiatric care Pyelonephritis Recurrent UTI Renal and ureteric calculus Renal stones Surgical History History of ureter stent Hx of cholecystectomy Status post colonoscopy (10/07/19) Family History Mother Asthma Heart murmur Atrial fibrillation Denies family history of Anesthesia complication Bleeding disorder Social History Smoking and tobacco status: current some day smoker cigarettes Alcohol intake: never Household members: spouse Marital status: Current occupational status: employed History of recent travel: No Female Reproductive History: Date of last menstrual period: 09/20/20 Physical Exam Const: GENERAL APPEARANCE: cooperative and ill appearing (Mildly) HENMT: COMMON NORMALS: normocephalic and Normal external nose present HEAD & SCALP: normocephalic FACE & SINUS: normal facial exam NOSE: Normal external nose present Eye: COMMON NORMALS: Equal, round and reactive pupils present and EOMs intact bilaterally SCLERA: scleral abnormal Laterality of scleral abnormality: positive bilateral (P[place]or) PUPIL: Yes Equal, round and reactive pupils present Chest: COMMONS NORMALS: normal inspection of the chest Resp: COMMON NORMALS: normal respiratory effort, No use of accessory muscles and clear to auscultation bilaterally AUSCULTATION: clear to auscultation bilaterally Cardio: COMMON NORMALS: regular rate and regular rhythm RATE: regular rate RHYTHM: regular rhythm GI: INSPECTION: Yes abdominal wall ecchymosis and Yes Abdominal wall edema PALPATION: Yes Tenderness to palpation present (GI) (Suprapubic) and Yes Guarding due to palpation present (GI) Extremity: COMMON NORMALS: normal to inspection Neuro: ABENA COMA SCALE: document GCS findings Abena coma scale eye opening: Spontaneous Abena coma scale verbal response: Orientated [place]ena coma scale motor response: Obey commands [place] coma scale total score: 15 Psych: COMMON NORMALS: mental status grossly normal Skin: GENERAL SKIN EXAM: pallor (Mild) Course Vital Signs: Vital signs: Vital Signs Temperature 97.8 F 06/11/21 22:28 Pulse Rate 71 06/12/21 04:00 Respiratory Rate 16 06/12/21 04:00 Blood Pressure 105/73 06/12/21 04:00 Pulse Oximetry 97 06/12/21 04:00 MDM - Abdominal Pain Medical Decision Making Hemoglobin is 10. No leukocytosis. No fever here. CT shows abnormal fluid collections and abscess formation seen in the lower anterior pelvic wall extendi ng from the subcutaneous tissues through the rectus fascia and within the properitoneal space. There is no intraperitoneal fluid collection or gas. Her lactate is normal. We have a call out to obstetrics/gynecology for recommendations. Spoke with obstetrics. Recommendations are antibiotic coverage, outpatient follow-up with her surgeon, as the collection does not reach the intraperitoneal space, area is likely postoperative, and the patient appears stable. The patient has a follow-up appointment with her surgeon on Sunday. We will print images from CT for her to take with her to appointment. We will place her on antibiotic coverage. She has received IV Zosyn here. Lab Data : 06/12/21 01:40 06/12/21 01:40 Labs/Radiology: Radiology Impressions Abdomen/Pelvis CT 06/12/21 00:00 IMPRESSION: 1. Multilevel abnormal fluid collections and abscess formation seen in the lower anterior pelvic wall extending from the subcutaneous tissues through the investing fascia of the rectus musculature and within the properitoneal space as described above. 2. Bilateral benign renal cysts, the largest seen on the left measuring 6.5 mm. No further workup needed. 3. Two nonobstructing left renal calculi, the largest measuring 2.5 mm. COMMENTS: Consistent with the [employer] [employer]'s Incidental Findings Committee white paper (J Am Tae Radiol 2018): Any incidental renal lesion less than 1 cm or classified as too small to characterize, or any incidental cystic renal lesion characterized as simple-appearing, is likely benign. No follow-up imaging is recommended for these lesions per consensus recommendations based on imaging criteria. Laboratory Results WBC 6.9 10^3/uL (4.0-10.0) 06/12/21 01:40 RBC 3.40 10^6/uL (4.1-5.3) L 06/12/21 01:40 Hgb 10.0 g/dL (11.5-15.3) L 06/12/21 01:40 Hct 30.3 % (37.0-47.0) L 06/12/21 01:40 MCV 89.1 fl (81-99) 06/12/21 01:40 MCH 29.4 pg (28.0-34.0) 06/12/21 01:40 MCHC 33.0 g/dL (30.0-36.0) 06/12/21 01:40 RDW 12.1 % (12.1-15.1) 06/12/21 01:40 Plt Count 348 10^3/cmm (130-400) 06/12/21 01:40 MPV 9.5 fL (7.4-10.4) 06/12/21 01:40 Neut % (Auto) 53.0 % 06/12/21 01:40 Lymph % (Auto) 36.6 % 06/12/21 01:40 [place] % (Auto) 6.9 % 06/12/21 01:40 Eos % (Auto) 2.2 % 06/12/21 01:40 Baso % (Auto) 1.0 % 06/12/21 01:40 Neut # (Auto) 3.68 10^3/uL (1.8-7.7) 06/12/21 01:40 Lymph # (Auto) 2.5 10^3/uL (0.8-4.8) 06/12/21 01:40 [place] # (Auto) 0.5 10^3/uL (0.2-0.9) 06/12/21 01:40 Eos # (Auto) 0.2 10^3/uL (0.0-0.8) 06/12/21 01:40 Baso # (Auto) 0.1 10^3/uL (0.0-0.1) 06/12/21 01:40 Nucleated RBC % (auto) 0 % 06/12/21 01:40 Nucleated RBCs # 0.0 /100WBC 06/12/21 01:40 Sodium 138 mmol/L (136-145) 06/12/21 01:40 Potassium 3.9 mmol/L (3.5-5.1) 06/12/21 01:40 Chloride 105 mmol/L (98-107) 06/12/21 01:40 Carbon Dioxide 24 mmol/L (22-29) 06/12/21 01:40 Anion Gap 12.9 (5-19) 06/12/21 01:40 BUN 15 mg/dL (6-20) 06/12/21 01:40 Creatinine 0.5 mg/dL (0.5-0.9) 06/12/21 01:40 GFR Calculation 151.6 mL/min (90-130) H 06/12/21 01:40 Glucose 99 mg/dL (65-115) 06/12/21 01:40 Calculated Osmolality 287 mOsm/kg (285-295) 06/12/21 01:40 Lactic Acid 0.5 mmol/L (0.5-2.2) 06/12/21 01:40 Calcium 8.7 mg/dL (8.5-10.5) 06/12/21 01:40 Total Bilirubin 0.2 mg/dL (0.15-1.2) 06/12/21 01:40 AST 26 U/L (0-32) 06/12/21 01:40 ALT 10 U/L (0-33) 06/12/21 01:40 Alkaline Phosphatase 99 IU/L (35-105) 06/12/21 01:40 Total Protein 6.9 g/dL (6.6-8.7) 06/12/21 01:40 Albumin 3.5 g/dL (3.5-5.2) 06/12/21 01:40 Globulin 3.4 g/dL (1.3-4.6) 06/12/21 01:40 Lipase 51 U/L (13-60) 06/12/21 01:40 Urine Color Yellow (Yellow) 06/12/21 01:05 Urine Appearance Clear (CLEAR) 06/12/21 01:05 Urine pH 7 (5-7) 06/12/21 01:05 Ur Specific [place] 1.005 (1.005-1.030) 06/12/21 01:05 Urine Protein Neg (Negative) 06/12/21 01:05 Urine Glucose (UA) Norm (Normal) 06/12/21 01:05 Urine Ketones Negative (Negative) 06/12/21 01:05 Urine Blood Neg (Negative) 06/12/21 01:05 Urine Nitrate Positive (Negative) H 06/12/21 01:05 Urine Bilirubin Neg (Negative) 06/12/21 01:05 Urine Urobilinogen Norm mg/dL (Negative) 06/12/21 01:05 Ur Leukocyte Esterase Negative (Negative) 06/12/21 01:05 Urine RBC 0-4 /hpf (0-2) H 06/12/21 01:05 Urine WBC 0-4 /hpf (0-5) H 06/12/21 01:05 Ur Squamous Epith Cells 0-4 /hpf (0-5) H 06/12/21 01:05 Amorphous Sediment Not Reportable 06/12/21 01:05 Urine Bacteria 4+ /hpf (NONE) H 06/12/21 01:05 Blood Type O Negative 06/12/21 01:40 Rho(D) Type Negative 06/12/21 01:40 Antibody Screen Positive 06/12/21 01:40 Discharge Plan Discharge Patient Disposition: Home Clinical Impression: Seroma after procedure Condition: Stable Prescriptions: New clindamycin HCl 300 mg capsule 300 mg PO TID 10 Days Qty: 30 0RF hydrocodone-acetaminophen 5-325 mg tablet 1 tab PO Q8H PRN (Reason: pain) Qty: 10 0RF No Action nitrofurantoin monohyd/m-cryst [Macrobid] 100 mg capsule 100 mg PO BID 0RF Rx Instructions: must administer with a meal/food prenat.vits,chantal,qgs-svse-crvja Tablet 1 tab PO DAILY 0RF Discharge Orders: Discharge ED (Routine); Ordered 06/12/21 Ordered By: Bruce Mckoy Referrals: Audrey Altman FNP [Primary Care Provider] - 1-3 days Discharge Diet: Advance as tolerated Discharge Activity: Increase activity as tolerated Patient Instructions: Seroma (DC) Activity Restrictions/Additional Instructions: Return for fever greater than 100 despite 2-3 doses of antibiotics, worsening pain despite treatment, drainage from your surgical incision, bleeding, any other concerning symptoms. Follow-up with your PCP and surgeon as scheduled. Use pain medication only for significant pain. Coding Level of Care Code ED .Net Developer for Devaughn Fwd Exam Comprehensive
[2021-06-12 03:00] VITALS: BP 113/69; PULSE 68; RESP 16; O2SAT 99
[2021-06-12 03:11] LABS: Add Urine Microscopic? YES
[2021-06-12 03:19] LABS: Add Urine Culture? Yes; Bacteria Urine 4+ /hpf; RBC Urine 0-4 /hpf (0-2); Squamous Epithelial Cell Urine 0-4 /hpf (0-5); WBC Urine 0-4 /hpf (0-5)
[2021-06-12] MEDS: sodium chloride 0.9% (100 ml) 100 ML (03:29)
[2021-06-12 03:30] VITALS: BP 103/69; PULSE 66; RESP 16; O2SAT 99
[2021-06-12 04:00] VITALS: BP 105/73; PULSE 71; RESP 16; O2SAT 97
== END 2021-06-12 04:30 | disposition home or self-care (01) ==
PROVIDERS: Emergency Provider Emergency Medicine; PCP Nurse Practitioner Family
DX: O90.2 Hematoma of obstetric wound (principal)
CPT/HCPCS: 74177; 80053; 80503; 81001; 83605; 83690; 85025; 86850; 86870; 86900; 87040; 87077; 87086; 87186; 96365; 99284; J2543; Q9967

== ENCOUNTER → 2021-07-08 11:40 | Outpatient (BNVA) | payer MEDICAID, SELFPAY | PROVIDERS: PCP Nurse Practitioner Family; Visit Provider Counselor Professional | DX: F32.9 Major depressive disorder, single episode, unspecified (principal); F41.1 Generalized anxiety disorder | CPT/HCPCS: 90834 ==

== ENCOUNTER 2022-11-16 14:59 | Outpatient (CLI) | payer MEDICAID, SELFPAY ==
--- NOTE | 2022-11-16 15:03 | MR_ITS ---
WS: [id number] MRI BRAIN WITH AND WITHOUT CONTRAST HISTORY: DIZZINESS/HEADACHE COMPARISON: None available. TECHNIQUE: Multiplanar imaging performed through the brain with MultiHance 12 ml's IV. No acute infarcts are seen. Lopez-white matter differentiation is well preserved. No susceptibility artifacts or prior lacunar infarcts. Ventricles and extra-axial spaces are normal. Clivus and pituitary gland are normal. Visualized posterior fossa and brainstem are also normal. Postcontrast images are negative for masses or vascular malformations. Dural venous sinuses are normal. Paranasal sinuses: Well aerated with no significant disease. Mastoid air cells: Normal. Calvarium and scalp: Normal. IMPRESSION: 1. Normal MRI brain with contrast. 2. No infarct or mass. No small vessel ischemic disease.
[2022-11-16] MEDS: gadobenate dimeglumine 20 mL vial IV (15:43)
== END 2022-11-16 15:00 | disposition home or self-care (01) ==
PROVIDERS: PCP Nurse Practitioner Family; Visit Provider Nurse Practitioner Family
DX: R42 Dizziness and giddiness (principal); R51.9 Headache, unspecified; H53.9 Unspecified visual disturbance
CPT/HCPCS: 70553; A9577

== ENCOUNTER → 2022-12-13 14:44 | Outpatient (BNVA) | payer MEDICAID, SELFPAY | PROVIDERS: PCP Nurse Practitioner Family; Visit Provider Nurse Practitioner Women's Health | DX: Z30.431 Encounter for routine checking of intrauterine contraceptive device (principal) | CPT/HCPCS: 76830 ==

== ENCOUNTER → 2023-01-11 15:15 | Outpatient (BNVA) | payer MEDICAID, SELFPAY | PROVIDERS: PCP Nurse Practitioner Family; Visit Provider Nurse Practitioner Women's Health | DX: Z09 Encounter for follow-up examination after completed treatment for conditions other than malignant neoplasm (principal) | CPT/HCPCS: 76830 ==

== ENCOUNTER 2023-05-12 21:17 | Emergency (ER) | payer MEDICAID, SELFPAY ==
[2023-05-12 21:35] VITALS: BP 127/78; PULSE 81; RESP 17; TEMP 36.6; O2SAT 100; BMI 20.7
--- NOTE | 2023-05-12 22:44 | ED_ITS ---
Documented by User: HAMIDA Brennan 05/13/23 00:54 HPI - Abdominal Pain 2 General: Chief Complaint: Abdominal Pain Stated Complaint: back pain fever fatigue lethargic. prev sepsis Time Seen by Provider: 05/12/23 22:09 Source: patient Mode of arrival: ambulatory Limitations: no limitations History of Present Illness: This patient is a 27-year-old female who presents to the emergency department due to bilateral flank and back pain onset 2 days. Patient reports history of chronic kidney infections and nephrolithiasis, and reports she has gone septic twice due to obstructions. She states that she is having all the symptoms that she had prior to those 2 incidences, which include some fatigue, low-grade fevers, nausea, dysuria, foul urinary odor, and worsening of the chronic pain. She states that she takes ibuprofen for pain, but ultimately has learned to deal with the pain. The pain has become more constant and is stabbing in quality. No other symptoms to report at this time. MD elicited complaint: flank pain Pertinent past history: kidney stones and past UTI Onset (ago): day(s) (2) Pain Consistency: constant Location: L flank and R flank Severity: moderate Quality: stabbing Radiation: back Associated Symptoms: Reports dysuria, fever(s) and nausea; Denies bloating, change in stool character, chills, constipation, diarrhea, hematochezia and vomiting Treatments prior to arrival: NSAIDs Review of Systems 2 General: Reports: 10 or more systems reviewed and unremarkable except in HPI and below Const: Reports: fever(s) and fatigue; Denies: chills, change in appetite, change in weight or diaphoresis ENMT: Denies: throat pain or hoarseness Card: Denies: chest pain, palpitations or lightheadedness Resp: Denies: dyspnea, productive cough or wheezing GI: Reports: nausea; Denies: abdominal pain, vomiting, diarrhea, constipation, bloating, change in stool character or hematochezia : Reports: flank pain and dysuria; Denies: difficulty voiding, urinary frequency or urinary urgency Musc: Reports: back pain; Denies: neck pain Skin/Breast: Denies: rash or new lesions Neuro: Denies: headache(s) or dizziness PFSH ED 2 PFSH: Medical History Renal stones Recurrent UTI Pyelonephritis Renal and ureteric calculus Surgical History Status post colonoscopy (10/07/19) Hx of cholecystectomy History of ureter stent Family History Mother Asthma Heart murmur Atrial fibrillation Denies family history of Anesthesia complication Bleeding disorder Social History Smoking and tobacco/nicotine status: current some day tobacco/nicotine user cigarettes Alcohol intake: never Substance/Drug Use: never Household members: spouse Marital status: Current occupational status: employed Physical Exam 2 Const: COMMON NORMALS: no acute distress, average body habitus, patient oriented x3, no limitations, healthy appearing, alert and well nourished G ENERAL APPEARANCE: cooperative and comfortable ORIENTATION/CONSCIOUSNESS: Yes awake HENMT: COMMON NORMALS: normocephalic, atraumatic, hearing grossly normal bilaterally, external ears normal, Normal external nose present, Normal nasal mucous membranes and turbinates present and moist oral mucous membranes HEAD & SCALP: normocephalic and atraumatic NOSE: Normal external nose present and Normal nasal mucous membranes and turbinates present EXTERNAL EAR: Yes external ears normal Eye: COMMON NORMALS: Equal, round and reactive pupils present, EOMs intact bilaterally, conjunctivae normal and normal visual woodall by confrontation C ONJUNCTIVA: Yes conjunctivae normal PUPIL: Yes Equal, round and reactive pupils present Neck/C-Spine: COMMON NORMALS: full ROM, supple, no meningeal signs and no JVD Resp: COMMON NORMALS: normal respiratory effort, No retractions, No use of accessory muscles and clear to auscultation bilaterally AUSCULTATION: clear to auscultation bilaterally, no crackles, no rales, no rhonchi and no wheezes Cardio: COMMON NORMALS: no JVD, regular rate, regular rhythm, S1 normal heart sound present, S2 normal heart sound present, No gallops present (Cardio), No clicks present (Cardio), No murmurs present (Cardio), No rub (Cardio) and Peripheral pulses 2+ throughout RATE: regular rate RHYTHM: regular rhythm HEART SOUNDS: S1 normal heart sound present and S2 normal heart sound present PERIPHERAL PULSES: Peripheral pulses 2+ throughout GI: COMMON NORMALS: Normal to inspection, nondistended, normoactive bowel sounds present, Soft to palpation, non-tender, No hepatosplenomegaly present and no masses AUSCULTATION: Yes normoactive bowel sounds PALPATION: Yes Soft to palpation, No Guarding due to palpation present (GI), No Rigid due to palpation and Yes No hepatosplenomegaly present RECTAL EXAM: deferred : BLADDER/KIDNEY EXAM: Yes CVA tenderness Back/Pelvis: COMMON NORMALS: thoracic and lumbar spine normal to inspection and no thoracic nor lumbar tenderness GENERAL BACK: Yes CVA tenderness CVA tenderness: bilateral Extremity: COMMON NORMALS: normal to inspection and full ROM Neuro: COMMON NORMALS: patient oriented x3, moves all extremities, no focal motor deficits and no sensory deficits noted SENSORIUM/ORIENTATION: Yes alert MENINGEAL SIGNS: Yes no meningeal signs Psych: COMMON NORMALS: mental status grossly normal, cooperative and speech normal SPEECH: Yes normal speech Skin: COMMON NORMALS: no rashes or lesions noted GENERAL SKIN EXAM: no rashes or lesions noted Course 2 Vital Signs: Vital signs: Vital Signs Temperature 97.9 F 05/12/23 21:35 Pulse Rate 82 05/13/23 00:57 Respiratory Rate 16 05/13/23 00:57 Blood Pressure 123/74 05/13/23 00:57 Pulse Oximetry 98 05/13/23 00:57 Oxygen Delivery Me thod Room Air 05/13/23 00:10 MDM - Abdominal Pain Medical Decision Making This patient seen and evaluated in the emergency department today due to bilateral worsening back pain. Patient notes history of nephrolithiasis and states she has gone septic twice due to obstructions, and she is primarily here to rule this out. On arrival patient's vitals normal as her blood pressure was within normal range, she was not tachycardic, and she was afebrile. I gave her liter of fluids as well as Zofran, as she was complaining of some nausea and vomiting. CBC unremarkable. CMP showed slight decrease in potassium, replenished with potassium chloride here in the ED. hCG serum qualitative was negative. UA ultimately was unremarkable. Abdomen pelvis CT without contrast did not demonstrate any obstructive uropathy, and did comment on the patient's bilateral nephrolithiasis that she has a history of. She did report to me that this pain feels similar, she just is worried due to the history of sepsis. My suspicion is very low as patient does not meet sepsis criteria and her vitals have remained stable throughout the duration of her ED stay. She does note some improvement of her pain, and I will send patient home with prescription for Zofran for the nausea and vomiting. Additionally instructed her to alternate Tylenol and ibuprofen for any pain. Return precautions were given and patient agrees with discharge home. Lab Data I reviewed the patient's lab results. 05/12/23 22:50 05/12/23 22:50 Labs/Radiology: Radiology Impressions Abdomen/Pelvis CT 05/12/23 23:59 IMPRESSION: 1. No bowel obstruction or inflammatory process associated with the bowel. 2. No free air or significant free fluid in the abdomen or pelvis. 3. No evidence of appendicitis. Laboratory Results WBC 4.71 10^3/uL (3.29-11.43) 05/12/23 22:50 RBC 4.40 10^6/uL (3.85-5.65) 05/12/23 22:50 Hgb 12.20 g/dL (11.27-16.99) 05/12/23 22:50 Hct 37.6 % (36-47) 05/12/23 22:50 MCV 85.5 fl (85-98) 05/12/23 22:50 MCH 27.7 pg (27-33) 05/12/23 22:50 MCHC 32.4 g/dL (30-55) 05/12/23 22:50 RDW 12.3 % (12.1-15.1) 05/12/23 22:50 Plt Count 209 10^3/cmm (157-399) 05/12/23 22:50 MPV 10.4 fL (7.4-10.4) 05/12/23 22:50 Neut % (Auto) 46.6 % 05/12/23 22:50 Lymph % (Auto) 39.9 % 05/12/23 22:50 [place] % (Auto) 10.4 % 05/12/23 22:50 Eos % (Auto) 2.3 % 05/12/23 22:50 Baso % (Auto) 0.6 % 05/12/23 22:50 Neut # (Auto) 2.19 10^3/uL (1.8-7.7) 05/12/23 22:50 Lymph # (Auto) 1.9 10^3/uL (0.8-4.8) 05/12/23 22:50 [place] # (Auto) 0.5 10^3/uL (0.2-0.9) 05/12/23 22:50 Eos # (Auto) 0.1 10^3/uL (0.0-0.8) 05/12/23 22:50 Baso # (Auto) 0.0 10^3/uL (0.0-0.1) 05/12/23 22:50 Nucleated RBC % (auto) 0 % 05/12/23 22:50 Nucleated RBCs # 0.0 /100WBC 05/12/23 22:50 Sodium 139 mmol/L (136-145) 05/12/23 22:50 Potassium 3.3 mmol/L (3.5-5.1) L 05/12/23 22:50 Chloride 105 mmol/L (98-107) 05/12/23 22:50 Carbon Dioxide 23 mmol/L (22-29) 05/12/23 22:50 Anion Gap 14.3 (5-19) 05/12/23 22:50 BUN 8 mg/dL (6-20) 05/12/23 22:50 Creatinine 0.6 mg/dL (0.5-0.9) 05/12/23 22:50 GFR Calculation 120.8 mL/min (90-130) 05/12/23 22:50 Glucose 85 mg/dL (65-115) 05/12/23 22:50 Calculated Osmolality 286 mOsm/kg (285-295) 05/12/23 22:50 Calcium 8.9 mg/dL (8.5-10.5) 05/12/23 22:50 Total Bilirubin 0.2 mg/dL (0.15-1.2) 05/12/23 22:50 AST 18 U/L (0-32) 05/12/23 22:50 ALT 12 U/L (0-33) 05/12/23 22:50 Alkaline Phosphatase 101 U/L (35-105) 05/12/23 22:50 Total Protein 7.4 g/dL (6.6-8.7) 05/12/23 22:50 Albumin 4.3 g/dL (3.5-5.2) 05/12/23 22:50 Globulin 3.1 g/dL (1.3-4.6) 05/12/23 22:50 Lipase 34 U/L (13-60) 05/12/23 22:50 HCG, Qual Negative (Negative) 05/12/23 22:50 Urine Color Yellow (Yellow) 05/12/23 22:41 Urine Appearance Clear (CLEAR) 05/12/23 22:41 Urine pH 7 (5-7) 05/12/23 22:41 Ur Specific [place] 1.000 (1.005-1.030) L 05/12/23 22:41 Urine Protein Neg (Negative) 05/12/23 22:41 Urine Glucose (UA) Norm (Normal) 05/12/23 22:41 Urine Ketones Negative (Negative) 05/12/23 22:41 Urine Blood Trace (Negative) H 05/12/23 22:41 Urine Nitrate Negative (Negative) 05/12/23 22:41 Urine Bilirubin Neg (Negative) 05/12/23 22:41 Urine Urobilinogen Neg mg/dL (Negative) 05/12/23 22:41 Ur Leukocyte Esterase Trace (Negative) H 05/12/23 22:41 Urine RBC 5-10 /hpf (0-2) H 05/12/23 22:41 Urine WBC 0-4 /hpf (0-5) H 05/12/23 22:41 Ur Squamous Epith Cells 0-4 /hpf (0-5) H 05/12/23 22:41 Amorphous Sediment Trace /hpf 05/12/23 22:41 Urine Bacteria Trace /hpf (NONE) 05/12/23 22:41 All radiology interpretation(s) finalized by discharge Discharge Plan Discharge Patient Disposition: Home Clinical Impression: Bilateral nephrolithiasis Condition: Stable Prescriptions: New ondansetron 4 mg tablet,disintegrating 4 mg PO TID PRN (Reason: nausea and vomiting) Qty: 60 0RF No Action Mirena 21 mcg/24 hours (8 yrs) 52 mg intrauterine device intrauterine Discharge Orders: Discharge ED (Routine); Ordered 05/13/23 Ordered By: Mayank Walls Referrals: Audrey Altman FNP [Primary Care Provider] - Discharge Diet: Usual diet Discharge Activity: Increase activity as tolerated Patient Instructions: Kidney Stones (ED) Activity Restrictions/Additional Instructions: Alternate Tylenol and ibuprofen for any pain. Zofran as needed for nausea and vomiting. Plenty of fluids. Follow-up with your primary care provider. Please return if you develop any new or concerning symptoms. Coding Level of Care Code ED [employer] Consultant for [employer] Documented by User: Sorin Uribe DO 05/19/23 08:13 HPI - Abdominal Pain 2 General: Chief Complaint: Abdominal Pain Stated Complaint: back pain fever fatigue lethargic. prev sepsis Time Seen by Provider: 05/12/23 22:09 PFSH ED 2 PFSH: Medical History Renal stones Recurrent UTI Pyelonephritis Renal and ureteric calculus Surgical History Status post colonoscopy (10/07/19) Hx of cholecystectomy History of ureter stent Family History Mother Asthma Heart murmur Atrial fibrillation Denies family history of Anesthesia complication Bleeding disorder Social History Smoking and tobacco/nicotine status: current some day tobacco/nicotine user cigarettes Alcohol intake: never Substance/Drug Use: never Household members: spouse Marital status: Current occupational status: employed Course 2 Vital Signs: Vital signs: Vital Signs Temperature 97.9 F 05/12/23 21:35 Pulse Rate 82 05/13/23 00:57 Respiratory Rate 16 05/13/23 00:57 Blood Pressure 123/74 05/13/23 00:57 Pulse Oximetry 98 05/13/23 00:57 Oxygen Delivery Me thod Room Air 05/13/23 00:10 MDM - Abdominal Pain Medical Decision Making This patient seen and evaluated in the emergency department today due to bilateral worsening back pain. Patient notes history of nephrolithiasis and states she has gone septic twice due to obstructions, and she is primarily here to rule this out. On arrival patient's vitals normal as her blood pressure was within normal range, she was not tachycardic, and she was afebrile. I gave her liter of fluids as well as Zofran, as she was complaining of some nausea and vomiting. CBC unremarkable. CMP showed slight decrease in potassium, replenished with potassium chloride here in the ED. hCG serum qualitative was negative. UA ultimately was unremarkable. Abdomen pelvis CT without contrast did not demonstrate any obstructive uropathy, and did comment on the patient's bilateral nephrolithiasis that she has a history of. She did report to me that this pain feels similar, she just is worried due to the history of sepsis. My suspicion is very low as patient does not meet sepsis criteria and her vitals have remained stable throughout the duration of her ED stay. She does note some improvement of her pain, and I will send patient home with prescription for Zofran for the nausea and vomiting. Additionally instructed her to alternate Tylenol and ibuprofen for any pain. Return precautions were given and patient agrees with discharge home. Chart reviewed Lab Data 05/12/23 22:50 05/12/23 22:50 Labs/Radiology: Radiology Impressions Abdomen/Pelvis CT 05/12/23 23:59 IMPRESSION: 1. No bowel obstruction or inflammatory process associated with the bowel. 2. No free air or significant free fluid in the abdomen or pelvis. 3. No evidence of appendicitis. Laboratory Results WBC 4.71 10^3/uL (3.29-11.43) 05/12/23 22:50 RBC 4.40 10^6/uL (3.85-5.65) 05/12/23 22:50 Hgb 12.20 g/dL (11.27-16.99) 05/12/23 22:50 Hct 37.6 % (36-47) 05/12/23 22:50 MCV 85.5 fl (85-98) 05/12/23 22:50 MCH 27.7 pg (27-33) 05/12/23 22:50 MCHC 32.4 g/dL (30-55) 05/12/23 22:50 RDW 12.3 % (12.1-15.1) 05/12/23 22:50 Plt Count 209 10^3/cmm (157-399) 05/12/23 22:50 MPV 10.4 fL (7.4-10.4) 05/12/23 22:50 Neut % (Auto) 46.6 % 05/12/23 22:50 Lymph % (Auto) 39.9 % 05/12/23 22:50 [place] % (Auto) 10.4 % 05/12/23 22:50 Eos % (Auto) 2.3 % 05/12/23 22:50 Baso % (Auto) 0.6 % 05/12/23 22:50 Neut # (Auto) 2.19 10^3/uL (1.8-7.7) 05/12/23 22:50 Lymph # (Auto) 1.9 10^3/uL (0.8-4.8) 05/12/23 22:50 [place] # (Auto) 0.5 10^3/uL (0.2-0.9) 05/12/23 22:50 Eos # (Auto) 0.1 10^3/uL (0.0-0.8) 05/12/23 22:50 Baso # (Auto) 0.0 10^3/uL (0.0-0.1) 05/12/23 22:50 Nucleated RBC % (auto) 0 % 05/12/23 22:50 Nucleated RBCs # 0.0 /100WBC 05/12/23 22:50 Sodium 139 mmol/L (136-145) 05/12/23 22:50 Potassium 3.3 mmol/L (3.5-5.1) L 05/12/23 22:50 Chloride 105 mmol/L (98-107) 05/12/23 22:50 Carbon Dioxide 23 mmol/L (22-29) 05/12/23 22:50 Anion Gap 14.3 (5-19) 05/12/23 22:50 BUN 8 mg/dL (6-20) 05/12/23 22:50 Creatinine 0.6 mg/dL (0.5-0.9) 05/12/23 22:50 GFR Calculation 120.8 mL/min (90-130) 05/12/23 22:50 Glucose 85 mg/dL (65-115) 05/12/23 22:50 Calculated Osmolality 286 mOsm/kg (285-295) 05/12/23 22:50 Calcium 8.9 mg/dL (8.5-10.5) 05/12/23 22:50 Total Bilirubin 0.2 mg/dL (0.15-1.2) 05/12/23 22:50 AST 18 U/L (0-32) 05/12/23 22:50 ALT 12 U/L (0-33) 05/12/23 22:50 Alkaline Phosphatase 101 U/L (35-105) 05/12/23 22:50 Total Protein 7.4 g/dL (6.6-8.7) 05/12/23 22:50 Albumin 4.3 g/dL (3.5-5.2) 05/12/23 22:50 Globulin 3.1 g/dL (1.3-4.6) 05/12/23 22:50 Lipase 34 U/L (13-60) 05/12/23 22:50 HCG, Qual Negative (Negative) 05/12/23 22:50 Urine Color Yellow (Yellow) 05/12/23 22:41 Urine Appearance Clear (CLEAR) 05/12/23 22:41 Urine pH 7 (5-7) 05/12/23 22:41 Ur Specific [place] 1.000 (1.005-1.030) L 05/12/23 22:41 Urine Protein Neg (Negative) 05/12/23 22:41 Urine Glucose (UA) Norm (Normal) 05/12/23 22:41 Urine Ketones Negative (Negative) 05/12/23 22:41 Urine Blood Trace (Negative) H 05/12/23 22:41 Urine Nitrate Negative (Negative) 05/12/23 22:41 Urine Bilirubin Neg (Negative) 05/12/23 22:41 Urine Urobilinogen Neg mg/dL (Negative) 05/12/23 22:41 Ur Leukocyte Esterase Trace (Negative) H 05/12/23 22:41 Urine RBC 5-10 /hpf (0-2) H 05/12/23 22:41 Urine WBC 0-4 /hpf (0-5) H 05/12/23 22:41 Ur Squamous Epith Cells 0-4 /hpf (0-5) H 05/12/23 22:41 Amorphous Sediment Trace /hpf 05/12/23 22:41 Urine Bacteria Trace /hpf (NONE) 05/12/23 22:41 Discharge Plan Discharge Patient Disposition: Home Clinical Impression: Bilateral nephrolithiasis Condition: Stable Prescriptions: New ondansetron 4 mg tablet,disintegrating 4 mg PO TID PRN (Reason: nausea and vomiting) Qty: 60 0RF No Action Mirena 21 mcg/24 hours (8 yrs) 52 mg intrauterine device intrauterine Discharge Orders: Discharge ED (Routine); Ordered 05/13/23 Ordered By: Mayank Walls Referrals: Audrey Altman FNP [Primary Care Provider] - Discharge Diet: Usual diet Discharge Activity: Increase activity as tolerated Patient Instructions: Kidney Stones (ED) Activity Restrictions/Additional Instructions: Alternate Tylenol and ibuprofen for any pain. Zofran as needed for nausea and vomiting. Plenty of fluids. Follow-up with your primary care provider. Please return if you develop any new or concerning symptoms. Coding Level of Care Code ED [employer] Consultant for Devaughn Mcbride
[2023-05-12] MEDS: ondansetron 2 mg/ML SDV 2 mL 4 MG IVP (22:50)
[2023-05-12] MEDS: sodium chloride 0.9% 1,000 ML 999 ML IV (22:50)
[2023-05-12 22:59] LABS: Basophils % 0.6 %; Eosinophils # 0.1 10^3/uL (0.0-0.8); Eosinophils % 2.3 %; Hematocrit 37.6 % (36-47); Lymphocytes # 1.9 10^3/uL (0.8-4.8); Lymphocytes % 39.9 %; Mean Corpuscular HGB Conc 32.4 g/dL (30-55); Mean Corpuscular Hemoglobin 27.7 pg (27-33); Mean Corpuscular Volume 85.5 fl (85-98); Mean Platelet Volume 10.4 fL (7.4-10.4); Monocytes # 0.5 10^3/uL (0.2-0.9); Monocytes % 10.4 %; Neutrophils # 2.19 10^3/uL (1.8-7.7); Neutrophils % 46.6 %; Nucleated Red Blood Cells % 0 %; Platelet Count 209 10^3/cmm (157-399); Red Cell Distribution Width 12.3 % (12.1-15.1); White Blood Count 4.71 10^3/uL (3.29-11.43)
[2023-05-12 23:11] LABS: Add Urine Microscopic? YES; Amorphous Sediment Urine TRACE /hpf; Bacteria Urine TRACE /hpf; Bilirubin Urine Neg (Negative); Blood Urine Trace (Negative); Glucose Urine UA Norm (Normal); Ketones Urine Negative (Negative); Leukocyte Esterase Urine Trace (Negative); Nitrate Urine Negative (Negative); Protein Urine Neg (Negative); Squamous Epithelial Cell Urine 0-4 /hpf (0-5); Urine Appearance Clear (CLEAR); Urine Color Yellow (Yellow); Urobilinogen Urine Neg (Negative); WBC Urine 0-4 /hpf (0-5); pH Urine 7 (5-7)
[2023-05-12 23:13] LABS: Alanine Aminotransferase 12 U/L (0-33); Albumin Level 4.3 g/dL (3.5-5.2); Alkaline Phosphatase 101 U/L (35-105); Anion Gap 14.3 (5-19); Aspartate Amino Transferase 18 U/L (0-32); Blood Urea Nitrogen 8 mg/dL (6-20); Calcium 8.9 mg/dL (8.5-10.5); Carbon Dioxide 23 mmol/L (22-29); Chloride 105 mmol/L (98-107); Creatinine Clr Calc Pharmacy 136.6236; Globulin 3.1 g/dL (1.3-4.6); Glomerular Filtration Rate 120.8 mL/min (90-130); Glucose 85 mg/dL (65-115); Lipase 34 U/L (13-60); Osmolality Calculated 286 mOsm/kg (285-295); Potassium 3.3 mmol/L (3.5-5.1); Sodium 139 mmol/L (136-145); Total Bilirubin 0.2 mg/dL (0.15-1.2); Total Protein 7.4 g/dL (6.6-8.7)
[2023-05-12 23:14] LABS: HCG, Serum Qual Negative (Negative)
[2023-05-12] MEDS: potassium chloride ER 20 mEq Tablet 40 MEQ PO (23:24)
--- NOTE | 2023-05-12 23:59 | CTR_ITS ---
PROCEDURE INFORMATION: Exam: CT Abdomen And Pelvis Without Contrast Exam date and time: 05/13/2023 12:06 AM Age: 27 years old Clinical indication: Other: Bilat flank; Prior surgery; Surgery date: 6+ months; Surgery type: Gb. Iud. History of ureteral stents. Patient HX: C/O bilateral flank pain. History of pyelonephritis and nephrolithiasis. ; Additional info: Bilateral flank pain, HX of kidney stones/pyelo w/ sepsis TECHNIQUE: Imaging protocol: Computed tomography of the abdomen and pelvis without contrast. Radiation optimization: All CT scans at this facility use at least one of these dose optimization techniques: automated exposure control; mA and/or kV adjustment per patient size (includes targeted exams where dose is matched to clinical indication); or iterative reconstruction. COMPARISON: CT abdomen pelvis w con* [id number] 06/12/2021 12:22 AM RADIATION DOSE METRICS: Total DLP (mGy-cm): 389.82 FINDINGS: Liver: Normal. No mass. Gallbladder and bile ducts: Normal. No calcified stones. No ductal dilation. Pancreas: Normal. No ductal dilation. Spleen: Normal. No splenomegaly. Adrenal glands: Normal. No mass. Kidneys and ureters: Multiple nonobstructing stones in the right kidney measuring up to 2 mm nonobstructing stone in the left kidney measuring up to 3 mm. No hydronephrosis or hydroureter. Stomach and bowel: Unremarkable. No obstruction. No mucosal thickening. Appendix: No evidence of appendicitis. Intraperitoneal space: Unremarkable. No free air. No significant fluid collection. Vasculature: Unremarkable. No abdominal aortic aneurysm. Lymph nodes: Unremarkable. No enlarged lymph nodes. Urinary bladder: Unremarkable as visualized. Reproductive: There has an IUD in place. Bones/joints: Unremarkable. No acute fracture. Soft tissues: Unremarkable. CT/CT kidney stone [id number] IMPRESSION: 1. No bowel obstruction or inflammatory process associated with the bowel. 2. No free air or significant free fluid in the abdomen or pelvis. 3. No evidence of appendicitis.
[2023-05-13 00:10] VITALS: BP 123/74; PULSE 94; O2SAT 97
[2023-05-13 00:48] VITALS: BP 123/74; PULSE 90; O2SAT 99
[2023-05-13 00:57] VITALS: BP 123/74; PULSE 82; RESP 16; O2SAT 98
== END 2023-05-13 00:58 | disposition home or self-care (01) ==
PROVIDERS: Emergency Provider Physician Assistant; PCP Nurse Practitioner Family
DX: N20.0 Calculus of kidney (principal); F17.210 Nicotine dependence, cigarettes, uncomplicated; Z87.442 Personal history of urinary calculi
CPT/HCPCS: 74176; 80053; 81001; 83690; 84703; 85025; 96361; 96374; 99285; J2405; J7030

== ENCOUNTER 2023-05-24 15:08 | Emergency (ER) | payer MEDICAID, SELFPAY ==
[2023-05-24 15:22] VITALS: BP 137/86; PULSE 81; RESP 14; TEMP 36.8; O2SAT 100; BMI 21.9
[2023-05-24 15:54] VITALS: PULSE 81; RESP 18; O2SAT 100
--- NOTE | 2023-05-24 15:55 | W.ED.NECK ---
HPI - Neck Pain/Injury General: Chief Complaint: Neck Pain/Injury Stated Complaint: neck pains, headache Time Seen by Provider: 05/24/23 15:32 Source: patient Mode of arrival: ambulatory History of Present Illness: 27-year-old female presents emergency room complaining of neck pain and headache she gets a burning sensation in the right set her head begins the occipital region and wraps around to the forehead and feels like it is behind the eye she had a couple episodes yesterday she no symptoms at all now. Happened earlier today resolved spontaneously. She was seen her primary care doctor yesterday was put on buspirone and sumatriptan is still having symptoms. No vision changes no ataxia's. MD complaint: neck pain Onset (ago): day(s) Review of Systems Const: Denies: fever(s) or chills Card: Denies: chest pain Resp: Denies: dyspnea GI: Denies: abdominal pain : Denies: dysuria, urinary frequency or urinary urgency Musc: Denies: neck pain or back pain Skin/Breast: Denies: rash PFSH ED PFSH: Medical History Renal stones Recurrent UTI Pyelonephritis Renal and ureteric calculus Surgical History Status post colonoscopy (10/07/19) Hx of cholecystectomy History of ureter stent Family History Mother Asthma Heart murmur Atrial fibrillation Denies family history of Anesthesia complication Bleeding disorder Social History Smoking and tobacco/nicotine status: current some day tobacco/nicotine user cigarettes Alcohol intake: never Substance/Drug Use: never Household members: spouse Marital status: Current occupational status: employed Physical Exam Const: COMMON NORMALS: no acute distress GENERAL APPEARANCE: cooperative and comfortable ORIENTATION/CONSCIOUSNESS: Yes awake, Yes oriented to person, Yes oriented to place and Yes oriented to time HENMT: COMMON NORMALS: normocephalic, atraumatic and hearing grossly normal bilaterally HEAD & SCALP: normocephalic and atraumatic Resp: COMMON NORMALS: normal respiratory effort, No retractions, No use of accessory muscles and clear to auscultation bilaterally AUSCULTATION: clear to auscultation bilaterally Cardio: COMMON NORMALS: regular rate, regular rhythm and No murmurs present (Cardio) RATE: regular rate RHYTHM: regular rhythm Extremity: COMMON NORMALS: normal to inspection, capillary refill normal, no clubbing, cyanosis or edema, no calf tenderness and no pedal edema Neuro: SENSORIUM/ORIENTATION: Yes oriented to person, Yes oriented to place and Yes oriented to time OTHER: No localizing deficits no focal neurologic deficits cranial 2-12 grossly intact Skin: COMMON NORMALS: no rashes or lesions noted GENERAL SKIN EXAM: no rashes or lesions noted Course Vital Signs: Vital signs: Vital Signs Temperature 98.3 F 05/24/23 15:22 Pulse Rate 81 05/24/23 15:54 Respiratory Rate 18 05/24/23 15:54 Blood Pressure 137/86 05/24/23 15:22 Pulse Oximetry 100 05/24/23 15:54 Oxygen Delivery Me thod Room Air 05/24/23 15:54 MDM - Neck Pain/Injury Medical Decision Making No trauma. Her description of symptoms sound more like an occipital neuralgia particularly as a sharp spasming stabbing pains that happen intermittently. Will start her on Lyrica 75 mg twice a day refer her to neurology. She is already been scheduled to see neurology but is not till September will see if case management can move it up. Lab Data 05/24/23 15:50 05/24/23 15:50 Laboratory Results WBC 6.67 10^3/uL (3.29-11.43) 05/24/23 15:50 RBC 4.72 10^6/uL (3.85-5.65) 05/24/23 15:50 Hgb 13.20 g/dL (11.27-16.99) 05/24/23 15:50 Hct 40.2 % (36-47) 05/24/23 15:50 MCV 85.2 fl (85-98) 05/24/23 15:50 MCH 28.0 pg (27-33) 05/24/23 15:50 MCHC 32.8 g/dL (30-55) 05/24/23 15:50 RDW 12.2 % (12.1-15.1) 05/24/23 15:50 Plt Count 206 10^3/cmm (157-399) 05/24/23 15:50 MPV 10.4 fL (7.4-10.4) 05/24/23 15:50 Neut % (Auto) 61.3 % 05/24/23 15:50 Lymph % (Auto) 29.5 % 05/24/23 15:50 Edwards % (Auto) 7.6 % 05/24/23 15:50 Eos % (Auto) 0.9 % 05/24/23 15:50 Baso % (Auto) 0.6 % 05/24/23 15:50 Neut # (Auto) 4.08 10^3/uL (1.8-7.7) 05/24/23 15:50 Lymph # (Auto) 2.0 10^3/uL (0.8-4.8) 05/24/23 15:50 Edwards # (Auto) 0.5 10^3/uL (0.2-0.9) 05/24/23 15:50 Eos # (Auto) 0.1 10^3/uL (0.0-0.8) 05/24/23 15:50 Baso # (Auto) 0.0 10^3/uL (0.0-0.1) 05/24/23 15:50 Nucleated RBC % (auto) 0 % 05/24/23 15:50 Nucleated RBCs # 0.0 /100WBC 05/24/23 15:50 ESR 2 mm/hr (0-15) 05/24/23 15:50 Sodium 140 mmol/L (136-145) 05/24/23 15:50 Potassium 3.5 mmol/L (3.5-5.1) 05/24/23 15:50 Chloride 103 mmol/L (98-107) 05/24/23 15:50 Carbon Dioxide 26 mmol/L (22-29) 05/24/23 15:50 Anion Gap 14.5 (5-19) 05/24/23 15:50 BUN 9 mg/dL (6-20) 05/24/23 15:50 Creatinine 0.6 mg/dL (0.5-0.9) 05/24/23 15:50 GFR Calculation 120.8 mL/min (90-130) 05/24/23 15:50 Glucose 91 mg/dL (65-115) 05/24/23 15:50 Calculated Osmolality 288 mOsm/kg (285-295) 05/24/23 15:50 Calcium 9.5 mg/dL (8.5-10.5) 05/24/23 15:50 Total Bilirubin 0.3 mg/dL (0.15-1.2) 05/24/23 15:50 AST 16 U/L (0-32) 05/24/23 15:50 ALT 9 U/L (0-33) 05/24/23 15:50 Alkaline Phosphatase 83 U/L (35-105) 05/24/23 15:50 C-Reactive Protein 3.0 mg/L (0.0-4.9) 05/24/23 15:50 Total Protein 7.9 g/dL (6.6-8.7) 05/24/23 15:50 Albumin 4.7 g/dL (3.5-5.2) 05/24/23 15:50 Globulin 3.2 g/dL (1.3-4.6) 05/24/23 15:50 No radiology studies performed this visit Discharge Plan Discharge Patient Disposition: Home Clinical Impression: Occipital neuralgia of right side Condition: Stable Prescriptions: New Lyrica 75 mg capsule 75 mg PO BID Qty: 60 0RF No Action Mirena 21 mcg/24 hours (8 yrs) 52 mg intrauterine device See Rx Instructions .ROUTE .COMPLEX Rx Instructions: intrauterinely as directed ondansetron 4 mg tablet,disintegrating 4 mg PO TID PRN (Reason: nausea and vomiting) Qty: 60 0RF buspirone 5 mg Tablet 5 mg PO BID sumatriptan succinate 50 mg Tablet 50 mg PO Q2H PRN (Reason: Migraine Headache) Rx Instructions: do not exceed 4 doses per 24 hrs Discharge Orders: Discharge ED (Routine); Ordered 05/24/23 Ordered By: Sorin Uribe Referrals: Audrey Altman FNP [Primary Care Provider] - Discharge Diet: Usual diet Discharge Activity: Increase activity as tolerated Patient Instructions: Opioid Safety, Pain Management Activity Restrictions/Additional Instructions: Thank you for choosing [facility] for your healthcare needs today. Please realize this is an emergency room and that we are providing you with a medical screening exam and this may not be complete and all inclusive of all the testing and or work up that you may need to determine your ailment or severity of your illness. It is very important that you follow up as instructed or that you return to the Emergency Department should you have concerns or if your condition changes or worsens in any way. You are seen today for complaint of intermittent headache and neck pain. Your description of your symptoms is suggestive of occipital neuralgia. Recommend he start Lyrica 75 mg twice daily. Case management will make arrangements for you to see Dr. Sen will ask them to try to move up your appointment. Return to the emergency room if further problems. Coding Level of Care Code ED Inventory Representative for Devaughn Mcbride
[2023-05-24 15:58] LABS: Basophils % 0.6 %; Eosinophils # 0.1 10^3/uL (0.0-0.8); Eosinophils % 0.9 %; Hematocrit 40.2 % (36-47); Lymphocytes % 29.5 %; Mean Corpuscular HGB Conc 32.8 g/dL (30-55); Mean Corpuscular Volume 85.2 fl (85-98); Mean Platelet Volume 10.4 fL (7.4-10.4); Monocytes # 0.5 10^3/uL (0.2-0.9); Monocytes % 7.6 %; Neutrophils # 4.08 10^3/uL (1.8-7.7); Neutrophils % 61.3 %; Nucleated Red Blood Cells % 0 %; Platelet Count 206 10^3/cmm (157-399); Red Blood Count 4.72 10^6/uL (3.85-5.65); Red Cell Distribution Width 12.2 % (12.1-15.1); White Blood Count 6.67 10^3/uL (3.29-11.43)
[2023-05-24 16:06] LABS: Erythrocyte Sedimentation Rate 2 mm/hr (0-15)
[2023-05-24 16:20] LABS: Alanine Aminotransferase 9 U/L (0-33); Albumin Level 4.7 g/dL (3.5-5.2); Alkaline Phosphatase 83 U/L (35-105); Anion Gap 14.5 (5-19); Aspartate Amino Transferase 16 U/L (0-32); Blood Urea Nitrogen 9 mg/dL (6-20); Calcium 9.5 mg/dL (8.5-10.5); Carbon Dioxide 26 mmol/L (22-29); Chloride 103 mmol/L (98-107); Creatinine Clr Calc Pharmacy 139.8796; Globulin 3.2 g/dL (1.3-4.6); Glomerular Filtration Rate 120.8 mL/min (90-130); Glucose 91 mg/dL (65-115); Osmolality Calculated 288 mOsm/kg (285-295); Potassium 3.5 mmol/L (3.5-5.1); Sodium 140 mmol/L (136-145); Total Bilirubin 0.3 mg/dL (0.15-1.2); Total Protein 7.9 g/dL (6.6-8.7)
[2023-05-24 16:55] VITALS: PULSE 77; RESP 16; O2SAT 100
--- NOTE | 2023-05-24 23:34 | DCPLANNER ---
Message sent to Neurology for a follow up appointment
== END 2023-05-24 17:00 | disposition home or self-care (01) ==
PROVIDERS: Emergency Provider Family Medicine; PCP Nurse Practitioner Family
DX: M54.81 Occipital neuralgia (principal); Z72.0 Tobacco use
CPT/HCPCS: 80053; 85025; 85651; 86140; 99283

== ENCOUNTER → 2023-07-16 13:48 | Outpatient (BNVA) | payer MEDICAID, SELFPAY | PROVIDERS: PCP Nurse Practitioner Family; Visit Provider Nurse Practitioner Women's Health | DX: Z12.4 Encounter for screening for malignant neoplasm of cervix (principal) | CPT/HCPCS: 87624 ==

== ENCOUNTER 2023-08-14 21:39 | Emergency (ER) | payer MEDICAID, SELFPAY ==
[2023-08-14 21:40] VITALS: BP 126/81; PULSE 105; RESP 24; TEMP 36.4; O2SAT 100
--- NOTE | 2023-08-14 23:12 | CTR_ITS ---
PROCEDURE INFORMATION: Exam: CT Cervical Spine Without Contrast Exam date and time: 08/14/2023 11:38 PM Age: 27 years old Clinical indication: Injury or trauma; Fall; Other: Pain; Additional info: Fall/head inj TECHNIQUE: Imaging protocol: Computed tomography of the cervical spine without contrast. Radiation optimization: All CT scans at this facility use at least one of these dose optimization techniques: automated exposure control; mA and/or kV adjustment per patient size (includes targeted exams where dose is matched to clinical indication); or iterative reconstruction. COMPARISON: CT cervical spin wo con* [id number] 05/09/2017 2:41 PM RADIATION DOSE METRICS: Total DLP (mGy-cm): 274.9 FINDINGS: Bones: Normal vertebral body heights and lateral alignment. No acute fracture or posttraumatic subluxation. Grossly the central spinal canal is adequate in the cervical region. Lungs: Mild fibrotic changes lung apices. Soft tissues: Unremarkable. CT/CT cervical spin wo con* [id number] IMPRESSION: No acute fracture or posttraumatic subluxation.
--- NOTE | 2023-08-14 23:12 | XRR_ITS ---
PROCEDURE INFORMATION: Exam: XR Right Shoulder Exam date and time: 08/14/2023 11:30 PM Age: 27 years old Clinical indication: Injury or trauma; Fall; Other: Pain; Additional info: Fall/inj TECHNIQUE: Imaging protocol: Radiologic exam of the right shoulder. Views: 2 or more views. COMPARISON: CR (CHEST, ) 08/14/2023 11:28 PM FINDINGS: Bones/joints: Normal. Soft tissues: Normal. XR/XR shoulder RT min 2V* [id number] IMPRESSION: No acute findings.
--- NOTE | 2023-08-14 23:12 | CTR_ITS ---
PROCEDURE INFORMATION: Exam: CT Head Without Contrast Exam date and time: 08/14/2023 11:38 PM Age: 27 years old Clinical indication: Injury or trauma; Fall; Other: Pain; Additional info: Fall/head inj TECHNIQUE: Imaging protocol: Computed tomography of the head without contrast. Radiation optimization: All CT scans at this facility use at least one of these dose optimization techniques: automated exposure control; mA and/or kV adjustment per patient size (includes targeted exams where dose is matched to clinical indication); or iterative reconstruction. COMPARISON: MR head wo/w con [id number] 11/16/2022 3:41 PM RADIATION DOSE METRICS: Total DLP (mGy-cm): 1066.3 FINDINGS: Brain: No evidence for acute intracranial hemorrhage, mass effect, or acute infarct by CT. Normal toro-white matter differentiation in the cerebral hemispheres. Cerebral ventricles: No ventriculomegaly. Paranasal sinuses: Visualized sinuses are unremarkable. No fluid levels. Mastoid air cells: Visualized mastoid air cells are well aerated. Bones: Unremarkable. No acute fracture. Soft tissues: Unremarkable. CT/CT head wo con* [id number] IMPRESSION: No acute intracranial abnormality.
--- NOTE | 2023-08-14 23:12 | XRR_ITS ---
PROCEDURE INFORMATION: Exam: XR Chest Exam date and time: 08/14/2023 11:28 PM Age: 27 years old Clinical indication: Injury or trauma; Fall; Other: Pain; Additional info: Fall/pain with deep breaths TECHNIQUE: Imaging protocol: Radiologic exam of the chest. Views: 1 view. COMPARISON: CR XR chest 1V [id number] 04/20/2018 11:56 AM FINDINGS: Lungs: Calcified granuloma right mid lung. Lung parenchyma is otherwise clear. Pleural spaces: No pleural effusion. No pneumothorax. Heart/Mediastinum: Cardiac silhouette is normal in size for technique. Bones/joints: No displaced fractures. XR/XR chest 1V portable [id number] IMPRESSION: No displaced rib fractures are seen, but there is limited plain film sensitivity for nondisplaced fractures. Regardless, there is no evidence of pneumothorax, pulmonary parenchymal contusion, or pleural effusion.
[2023-08-14] MEDS: ondansetron 2 mg/ML SDV 2 mL 4 MG IM (23:21)
--- NOTE | 2023-08-14 23:31 | ED_ITS ---
HPI - Fall General: Chief Complaint: Fall Stated Complaint: Back Pain Time Seen by Provider: 08/14/23 22:58 Source: patient Mode of arrival: ambulatory Limitations: no limitations History of Present Illness: Patient is a 27-year-old female presenting to the emergency department complaining of a fall occurring just prior to arrival. Patient states she was rushing to check on daughter in the bathtub, when she slipped on some water and fell into the door frame with her right shoulder, and then states that she fell to the ground and struck her head. She is reporting headache and neck pain at this time, additionally having some shoulder pain. She states that initially she felt okay however has started to feel more dizzy and nauseous. She has not vomited. She does state that it took approximately 5 minutes to get up, which did require some help. However she denies losing consciousness and has no other neurological deficits to report at this time. She is not on any blood thinners. No other pertinent past medical history reported. No other pertinent historical factors or symptoms to report at this time. MD complaint: fall Onset (ago): minute(s) Fall from: standing Fall witnessed: yes, by family Place fall occurred: home Loss of consciousness: None Prolonged down time: minute(s) (5) Symptoms prior to fall: none Context: tripped/slipped Location of injury: head and neck Location of injury - extremities: Right: shoulder Associated symptoms-after fall: Reports headache(s) and neck pain; Denies abdominal pain, chest pain or lightheadedness Review of Systems General: Reports: 10 or more systems reviewed and unremarkable except in HPI and below Const: Denies: fever(s), chills or fatigue Eyes: Denies: change in vision ENMT: Denies: throat pain, ear or mastoid pain or nasal discharge Card: Denies: chest pain, palpitations, swelling of feet/ankles or lightheadedness Resp: Denies: dyspnea, productive cough or wheezing GI: Reports: nausea; Denies: abdominal pain, vomiting, diarrhea or constipation : Denies: flank pain, difficulty voiding, dysuria or urinary frequency Musc: Reports: neck pain; Denies: back pain or joint pain Skin/Breast: Denies: rash Neuro: Reports: headache(s) and dizziness; Denies: numbness in extremities or weakness in extremities PFSH ED PFSH: Medical History Renal stones Recurrent UTI Pyelonephritis Renal and ureteric calculus Surgical History Status post colonoscopy (10/07/19) Hx of cholecystectomy History of ureter stent Family History Mother Asthma Heart murmur Atrial fibrillation Denies family history of Anesthesia complication Bleeding disorder Social History Smoking and tobacco/nicotine status: never used tobacco/nicotine Physical Exam 2 Const: COMMON NORMALS: no acute distress, patient oriented x3 and no limitations GENERAL APPEARANCE: cooperative, comfortable and well developed ORIENTATION/CONSCIOUSNESS: Yes awake, Yes oriented to person, Yes oriented to place and Yes oriented to time HENMT: COMMON NORMALS: normocephalic, atraumatic and hearing grossly normal bilaterally HEAD & SCALP: normocephalic and atraumatic; no Graff's sign, no raccoon eyes and no scalp tenderness Eye: COMMON NORMALS: Equal, round and reactive pupils present, EOMs intact bilaterally and conjunctivae normal CONJUNCTIVA: Yes conjunctivae normal PUPIL: Yes Equal, round and reactive pupils present Neck/C-Spine: COMMON NORMALS: full ROM, supple and no JVD OTHER: No reproducible tenderness palpation of the cervical spine or paracervical muscles Chest: COMMONS NORMALS: normal inspection of the chest and normal palpation of entire chest wall Resp: COMMON NORMALS: normal respiratory effort, No retractions, No use of accessory muscles and clear to auscultation bilaterally AUSCULTATION: clear to auscultation bilaterally Cardio: COMMON NORMALS: no JVD, regular rate, regular rhythm, No clicks present (Cardio), No murmurs present (Cardio) and No rub (Cardio) RATE: regular rate RHYTHM: regular rhythm GI: COMMON NORMALS: Normal to inspection, nondistended, normoactive bowel sounds present, Soft to palpation and non-tender AUSCULTATION: Yes normoactive bowel sounds PALPATION: Yes Soft to palpation RECTAL EXAM: deferred Extremity: COMMON NORMALS: normal to inspection, full ROM and capillary refill normal NARRATIVE EXTREMITY EXAM: Mild reproducible tenderness to palpation of the right shoulder joint, no obvious deformity Neuro: COMMON NORMALS: patient oriented x3, CN's II-XII intact bilaterally, moves all extremities, no focal motor deficits and no sensory deficits noted SENSORIUM/ORIENTATION: Yes oriented to person, Yes oriented to place and Yes oriented to time Psych: COMMON NORMALS: mental status grossly normal and Normal thought process present THOUGHT PROCESS: Normal thought process present Skin: NARRATIVE SKIN EXAM: Abrasion noted to patient's right anterior shoulder Course Vital Signs: Vital signs: Vital Signs Temperature 97.6 F 08/14/23 21:40 Pulse Rate 105 H 08/14/23 21:40 Respiratory Rate 24 H 08/14/23 21:40 Blood Pressure 126/81 08/14/23 21:40 Pulse Oximetry 100 08/14/23 21:40 Oxygen Delivery Me thod Room Air 08/14/23 21:40 MDM - Fall Medical Decision Making Patient presented for a fall that she had just prior to coming in. Did report hitting her head, however no loss of consciousness. Did get up after 5 minutes on the ground, with assistance. She arrives stating that she has just recently developed some dizziness and nausea. Her neurological exam is completely unremarkable. No signs of trauma to her head, neck, or shoulder where she reports hitting during the fall. All imaging was negative for any acute findings. I did have conversation with her that she likely does have a concussion and may develop symptoms of a postconcussive syndrome, and the symptoms are discussed. I did inform her of specific signs to watch for and did inform her to avoid reinjury at all cost. She is to return if she develops any of these concerning symptoms and will follow-up with primary care as needed. All radiology interpretation(s) finalized by discharge Discharge Plan Discharge Condition: Stable Prescriptions: No Action Mirena 21 mcg/24 hours (8 yrs) 52 mg intrauterine device See Rx Instructions .ROUTE .COMPLEX Rx Instructions: intrauterinely as directed ondansetron 4 mg tablet,disintegrating 4 mg PO TID PRN (Reason: nausea and vomiting) Qty: 60 0RF buspirone 5 mg Tablet 5 mg PO BID sumatriptan succinate 50 mg Tablet 50 mg PO Q2H PRN (Reason: Migraine Headache) Rx Instructions: do not exceed 4 doses per 24 hrs Lyrica 75 mg capsule 75 mg PO BID Qty: 60 0RF Referrals: White,Audrey, PAPER HANGER [Primary Care Provider] - Coding Level of Care Code ED Plumbing Assembler Installer for Devaughn Mcbride
[2023-08-15 01:10] VITALS: BP 126/81; PULSE 105; RESP 16; TEMP 36.4; O2SAT 100
== END 2023-08-15 01:11 | disposition home or self-care (01) ==
PROVIDERS: Emergency Provider Physician Assistant; PCP Nurse Practitioner Family
DX: S40.211A Abrasion of right shoulder, initial encounter (principal); S09.90XA Unspecified injury of head, initial encounter; W01.0XXA Fall on same level from slipping, tripping and stumbling without subsequent striking against object, initial encounter
CPT/HCPCS: 70450; 71045; 72125; 73030; 96372; 99284; J2405

== ENCOUNTER → 2023-10-04 10:42 | Outpatient (BNVA) | payer OTHER, SELFPAY | PROVIDERS: PCP Nurse Practitioner Family; Visit Provider Nurse Practitioner | DX: Z79.899 Other long term (current) drug therapy (principal) | CPT/HCPCS: 80061; 83036 ==

== ENCOUNTER → 2024-01-23 13:34 | Outpatient (BNVA) | payer OTHER, SELFPAY | PROVIDERS: PCP Nurse Practitioner Family; Visit Provider Internal Medicine Cardiovascular Disease | DX: R07.9 Chest pain, unspecified (principal) | CPT/HCPCS: 93005 ==

== ENCOUNTER 2024-02-08 14:28 | Emergency (ER) | payer MEDICAID, SELFPAY ==
[2024-02-08 14:38] VITALS: BP 116/76; PULSE 92; RESP 16; TEMP 36.9; O2SAT 100; BMI 25.3
[2024-02-08 15:32] LABS: Bilirubin Urine Negative (Negative); Blood Urine 1+ (Negative); Glucose Urine UA Negative (Normal); Ketones Urine Negative (Negative); Leukocyte Esterase Urine Negative (Negative); Nitrate Urine Positive (Negative); Protein Urine Negative (Negative); Specific Gravity, Urine 1.015 (1.005-1.030); Urine Appearance Clear (CLEAR); Urine Color Yellow (Yellow)
[2024-02-08 15:35] LABS: Add Urine Microscopic? YES; Bacteria Urine 4+ /hpf; Squamous Epithelial Cell Urine 0-5 /hpf (0-5); WBC Urine 0-5 /hpf (0-5)
[2024-02-08 15:36] LABS: Basophils % 0.5 %; Eosinophils # 0.1 10^3/uL (0.0-0.8); Eosinophils % 1.1 %; Hematocrit 33.1 % (36-47); Lymphocytes # 1.6 10^3/uL (0.8-4.8); Lymphocytes % 24.8 %; Mean Corpuscular HGB Conc 33.5 g/dL (30-55); Mean Corpuscular Hemoglobin 28.6 pg (27-33); Mean Corpuscular Volume 85.3 fl (85-98); Monocytes # 0.4 10^3/uL (0.2-0.9); Monocytes % 5.9 %; Neutrophils # 4.34 10^3/uL (1.8-7.7); Neutrophils % 67.4 %; Nucleated Red Blood Cells % 0 %; Platelet Count 225 10^3/cmm (157-399); Red Blood Count 3.88 10^6/uL (3.85-5.65); Red Cell Distribution Width 11.9 % (12.1-15.1); White Blood Count 6.44 10^3/uL (3.29-11.43)
[2024-02-08 15:45] LABS: Add Urine Culture? Yes
[2024-02-08 15:46] LABS: HCG, Serum Qual Negative (Negative)
[2024-02-08 15:52] LABS: Alanine Aminotransferase 17 U/L (0-33); Albumin Level 3.9 g/dL (3.5-5.2); Alkaline Phosphatase 94 U/L (35-105); Anion Gap 10.4 (5-19); Aspartate Amino Transferase 18 U/L (0-32); Blood Urea Nitrogen 8 mg/dL (6-20); Calcium 8.7 mg/dL (8.5-10.5); Carbon Dioxide 28 mmol/L (22-29); Chloride 103 mmol/L (98-107); Creatinine Clr Calc Pharmacy 126.4521; Globulin 2.8 g/dL (1.3-4.6); Glomerular Filtration Rate 100.4 mL/min (90-130); Glucose 109 mg/dL (65-115); Lipase 37 U/L (13-60); Osmolality Calculated 285 mOsm/kg (285-295); Potassium 3.4 mmol/L (3.5-5.1); Sodium 138 mmol/L (136-145); Total Bilirubin 0.2 mg/dL (0.15-1.2); Total Protein 6.7 g/dL (6.6-8.7)
--- NOTE | 2024-02-08 17:21 | W.ED.ABDPA2 ---
Documented by User: Sorin Uribe DO 02/09/24 06:51 HPI - Abdominal Pain General: Chief Complaint: Abdominal Pain Stated Complaint: rt side pelvic pain Time Seen by Provider: 02/08/24 17:20 History of Present Illness: 28-year-old female with history of longstanding pelvic pain has been following with OB the last 3 weeks has been worse she is trying to get scheduled for a hysterectomy she tells me that insurance is cleared up but she has not scheduled with COMPUTER SYSTEMS TECHNICIAN for about 3 weeks. Not had any significant vaginal bleeding she has tried taking some ibuprofen for it. They diagnosed her with endometriosis. She also has an IUD in place. No current urinary tract symptoms but is finishing a course of antibiotics for cystitis. Associated Symptoms: Denies chills, dysuria and fever(s) Related Data Home Medications Medication Instructions Recorded Confirmed levonorgestrel 21 mcg/24 hr (up to See Rx Instructions .Route .COMPLEX 12/13/22 01/23/24 8 years) 52 mg intrauterine device (Mirena) buspirone 5 mg tablet 5 mg PO BID 05/24/23 01/23/24 amitriptyline 10 mg tablet 10 mg PO DAILY 10/04/23 01/23/24 Previous Rx's Medication Instructions Recorded aripiprazole 10 mg tablet (Abilify) 10 mg PO DAILY #30 tabs 01/16/24 metoprolol succinate 25 mg 12.5 mg (1/2 x 25 mg) PO DAILY #90 01/23/24 tablet,extended release 24 hr tabs oxycodone-acetaminophen 5 mg-325 1 tab PO Q8H PRN pain #7 tabs 02/08/24 mg tablet (Percocet) Allergies Allergy/AdvReac Type Severity Reaction Status Date / Time citalopram [From Celexa] Allergy ALGY-Rash Verified 02/08/24 14:38 latex Allergy ALGY-Rash Verified 02/08/24 14:38 sulfamethoxazole Allergy Unknown Verified 02/08/24 14:38 [From Bactrim] trimethoprim [From Bactrim] Allergy GI bleed Verified 02/08/24 14:38 Review of Systems Const: Denies: fever(s) or chills Card: Denies: chest pain Resp: Denies: dyspnea GI: Denies: abdominal pain : Denies: dysuria, urinary frequency or urinary urgency Musc: Denies: neck pain or back pain Skin/Breast: Denies: rash PFSH ED PFSH: Medical History (Updated 02/08/24 @ 19:35 by Pablo Holloway DO) Psychiatric care Generalized anxiety disorder Mood disorder On combination antipsychotic drug therapy Renal stones Recurrent UTI Pyelonephritis Renal and ureteric calculus Surgical History Status post colonoscopy (10/07/19) Hx of cholecystectomy History of ureter stent Family History Mother Asthma Heart murmur Atrial fibrillation Denies family history of Anesthesia complication Bleeding disorder Social History Smoking and tobacco/nicotine status: current every day tobacco/nicotine user (vapes) Physical Exam Const: COMMON NORMALS: no acute distress GENERAL APPEARANCE: cooperative and comfortable ORIENTATION/CONSCIOUSNESS: Yes awake, Yes oriented to person, Yes oriented to place and Yes oriented to time HENMT: COMMON NORMALS: normocephalic, atraumatic and hearing grossly normal bilaterally HEAD & SCALP: normocephalic and atraumatic Resp: COMMON NORMALS: normal respiratory effort, No retractions, No use of accessory muscles and clear to auscultation bilaterally AUSCULTATION: clear to auscultation bilaterally Cardio: COMMON NORMALS: regular rate, regular rhythm and No murmurs present (Cardio) RATE: regular rate RHYTHM: regular rhythm GI: COMMON NORMALS: Soft to palpation and No hepatosplenomegaly present AUSCULTATION: Yes normoactive bowel sounds PALPATION: Yes Soft to palpation, No Tenderness to palpation present (GI), No Guarding due to palpation present (GI) and Yes No hepatosplenomegaly present Extremity: COMMON NORMALS: normal to inspection, capillary refill normal, no clubbing, cyanosis or edema, no calf tenderness and no pedal edema Neuro: SENSORIUM/ORIENTATION: Yes oriented to person, Yes oriented to place and Yes oriented to time Skin: COMMON NORMALS: no rashes or lesions noted GENERAL SKIN EXAM: no rashes or lesions noted Course Vital Signs: Vital signs: Vital Signs Temperature 98.4 F 02/08/24 14:38 Pulse Rate 78 02/08/24 19:51 Respiratory Rate 18 12/27/24 19:51 Blood Pressure 102/56 02/08/24 19:51 Pulse Oximetry 98 02/08/24 19:[address] thod Room Air 02/08/24 18:30 MDM - Abdominal Pain Medical Decision Making Ultrasound pelvis pending. Care signed out to Dr. childs at change of shift. See final notes for diagnosis and disposition. Patient care transferred over to pa at shift change, reviewed lab work and ultrasound with the patient, both essentially unremarkable. Patient is currently on Macrobid. For UTI. Last urine culture was sensitive to Macrobid. We will give the patient 1 Percocet to go home with and a small prescription for Percocet to make her pain control until she can be seen by her COMPUTER SYSTEMS TECHNICIAN on 17 February. Lab Data 02/08/24 15:17 02/08/24 15:17 Labs/Radiology: Radiology Impressions Transvaginal US 02/08/24 17:39 IMPRESSION: Unremarkable pelvic ultrasound. Intrauterine device noted. Laboratory Results WBC 6.44 10^3/uL (3.29-11.43) 02/08/24 15:17 RBC 3.88 10^6/uL (3.85-5.65) 02/08/24 15:17 Hgb 11.10 g/dL (11.27-16.99) L 02/08/24 15:17 Hct 33.1 % (36-47) L 02/08/24 15:17 MCV 85.3 fl (85-98) 02/08/24 15:17 MCH 28.6 pg (27-33) 02/08/24 15:17 MCHC 33.5 g/dL (30-55) 02/08/24 15:17 RDW 11.9 % (12.1-15.1) L 02/08/24 15:17 Plt Count 225 10^3/cmm (157-399) 02/08/24 15:17 MPV 10.0 fL (7.4-10.4) 02/08/24 15:17 Neut % (Auto) 67.4 % 02/08/24 15:17 Lymph % (Auto) 24.8 % 02/08/24 15:17 [place] % (Auto) 5.9 % 02/08/24 15:17 Eos % (Auto) 1.1 % 02/08/24 15:17 Baso % (Auto) 0.5 % 02/08/24 15:17 Neut # (Auto) 4.34 10^3/uL (1.8-7.7) 02/08/24 15:17 Lymph # (Auto) 1.6 10^3/uL (0.8-4.8) 02/08/24 15:17 [place] # (Auto) 0.4 10^3/uL (0.2-0.9) 02/08/24 15:17 Eos # (Auto) 0.1 10^3/uL (0.0-0.8) 02/08/24 15:17 Baso # (Auto) 0.0 10^3/uL (0.0-0.1) 02/08/24 15:17 Nucleated RBC % (auto) 0 % 02/08/24 15:17 Nucleated RBCs # 0.0 /100WBC 02/08/24 15:17 Sodium 138 mmol/L (136-145) 02/08/24 15:17 Potassium 3.4 mmol/L (3.5-5.1) L 02/08/24 15:17 Chloride 103 mmol/L (98-107) 02/08/24 15:17 Carbon Dioxide 28 mmol/L (22-29) 02/08/24 15:17 Anion Gap 10.4 (5-19) 02/08/24 15:17 BUN 8 mg/dL (6-20) 02/08/24 15:17 Creatinine 0.7 mg/dL (0.5-0.9) 02/08/24 15:17 GFR Calculation 100.4 mL/min (90-130) 02/08/24 15:17 Glucose 109 mg/dL (65-115) 02/08/24 15:17 Calculated Osmolality 285 mOsm/kg (285-295) 02/08/24 15:17 Calcium 8.7 mg/dL (8.5-10.5) 02/08/24 15:17 Total Bilirubin 0.2 mg/dL (0.15-1.2) 02/08/24 15:17 AST 18 U/L (0-32) 02/08/24 15:17 ALT 17 U/L (0-33) 02/08/24 15:17 Alkaline Phosphatase 94 U/L (35-105) 02/08/24 15:17 Total Protein 6.7 g/dL (6.6-8.7) 02/08/24 15:17 Albumin 3.9 g/dL (3.5-5.2) 02/08/24 15:17 Globulin 2.8 g/dL (1.3-4.6) 02/08/24 15:17 Lipase 37 U/L (13-60) 02/08/24 15:17 HCG, Qual Negative (Negative) 02/08/24 15:17 Urine Color Yellow (Yellow) 02/08/24 15:16 Urine Appearance Clear (CLEAR) 02/08/24 15:16 Urine pH 7.0 (5-7) 02/08/24 15:16 Ur Specific [place] 1.015 (1.005-1.030) 02/08/24 15:16 Urine Protein Negative (Negative) 02/08/24 15:16 Urine Glucose (UA) Negative (Normal) 02/08/24 15:16 Urine Ketones Negative (Negative) 02/08/24 15:16 Urine Blood 1+ (Negative) A 02/08/24 15:16 Urine Nitrate Positive (Negative) A 02/08/24 15:16 Urine Bilirubin Negative (Negative) 02/08/24 15:16 Urine Urobilinogen 1.0 mg/dL (Negative) 02/08/24 15:16 Ur Leukocyte Esterase Negative (Negative) 02/08/24 15:16 Urine RBC 3-5 /hpf (0-2) 02/08/24 15:16 Urine WBC 0-5 /hpf (0-5) 02/08/24 15:16 Ur Squamous Epith Cells 0-5 /hpf (0-5) 02/08/24 15:16 Amorphous Sediment Not Reportable 02/08/24 15:16 Urine Bacteria 4+ /hpf (NONE) H 02/08/24 15:16 Hyaline Casts 0.40 /lpf 02/08/24 15:16 Discharge Plan Discharge Patient Disposition: Home Clinical Impression: Pelvic pain Condition: Stable Prescriptions: New oxycodone-acetaminophen [Percocet] 5-325 mg tablet 1 tab PO Q8H PRN (Reason: pain) Qty: 7 0RF No Action amitriptyline 10 mg tablet 10 mg PO DAILY aripiprazole [Abilify] 10 mg tablet 10 mg PO DAILY Qty: 30 1RF Mirena 21 mcg/24 hours (8 yrs) 52 mg intrauterine device See Rx Instructions .ROUTE .COMPLEX Rx Instructions: intrauterinely as directed metoprolol succinate 25 mg tablet extended release 24 hr 12.5 mg PO DAILY Qty: 90 3RF buspirone 5 mg Tablet 5 mg PO BID Discharge Orders: Discharge ED (Routine); Ordered 02/08/24 Ordered By: Pablo Holloway Referrals: Audrey Altman FNP [Primary Care Provider] - 1 week Patient Instructions: Pelvic Pain in Women (ED), Opioid Safety, Pain Management Activity Restrictions/Additional Instructions: Thank you for choosing [facility] for your healthcare needs today. Please realize that you were seen in the emergency department and that we are providing you with an emergency medical screening exam and this may not be a complete and all exclusive of all testing and/or medical workup we may need to determine your element or severity of your illness. It is very important that you follow-up as instructed with your primary care provider or specialist for the additional evaluation and to discuss your medical treatment plan. You may return to the emergency department should you have concerns or if your condition changes or worsens in any way. Coding Level of Care Code ED Raw Stock Drier Tender for Chg Fwd Documented by User: Pablo Holloway DO 02/08/24 22:23 HPI - Abdominal Pain General: Chief Complaint: Abdominal Pain Stated Complaint: rt side pelvic pain Time Seen by Provider: 02/08/24 17:20 Related Data Home Medications Medication Instructions Recorded Confirmed levonorgestrel 21 mcg/24 hr (up to See Rx Instructions .Route .COMPLEX 12/13/22 01/23/24 8 years) 52 mg intrauterine device (Mirena) buspirone 5 mg tablet 5 mg PO BID 05/24/23 01/23/24 amitriptyline 10 mg tablet 10 mg PO DAILY 10/04/23 01/23/24 Previous Rx's Medication Instructions Recorded aripiprazole 10 mg tablet (Abilify) 10 mg PO DAILY #30 tabs 01/16/24 metoprolol succinate 25 mg 12.5 mg (1/2 x 25 mg) PO DAILY #90 01/23/24 tablet,extended release 24 hr tabs oxycodone-acetaminophen 5 mg-325 1 tab PO Q8H PRN pain #7 tabs 02/08/24 mg tablet (Percocet) Allergies Allergy/AdvReac Type Severity Reaction Status Date / Time citalopram [From Celexa] Allergy ALGY-Rash Verified 02/08/24 14:38 latex Allergy ALGY-Rash Verified 02/08/24 14:38 sulfamethoxazole Allergy Unknown Verified 02/08/24 14:38 [From Bactrim] trimethoprim [From Bactrim] Allergy GI bleed Verified 02/08/24 14:38 PFSH ED PFSH: Medical History (Updated 02/08/24 @ 19:35 by Pablo Holloway DO) Psychiatric care Generalized anxiety disorder Mood disorder On combination antipsychotic drug therapy Renal stones Recurrent UTI Pyelonephritis Renal and ureteric calculus Surgical History Status post colonoscopy (10/07/19) Hx of cholecystectomy History of ureter stent Family History Mother Asthma Heart murmur Atrial fibrillation Denies family history of Anesthesia complication Bleeding disorder Social History Smoking and tobacco/nicotine status: current every day tobacco/nicotine user (vapes) Course Vital Signs: Vital signs: Vital Signs Temperature 98.4 F 02/08/24 14:38 Pulse Rate 78 02/08/24 19:51 Respiratory Rate 18 02/08/24 19:51 Blood Pressure 102/56 02/08/24 19:51 Pulse Oximetry 98 02/08/24 19:[address] thod Room Air 02/08/24 18:30 MDM - Abdominal Pain Medical Decision Making Patient care transferred over to pa at shift change, reviewed lab work and ultrasound with the patient, both essentially unremarkable. Patient is currently on Macrobid. For UTI. Last urine culture was sensitive to Macrobid. We will give the patient 1 Percocet to go home with and a small prescription for Percocet to make her pain control until she can be seen by her COMPUTER SYSTEMS TECHNICIAN on 17 February. Lab Data 02/08/24 15:17 02/08/24 15:17 Labs/Radiology: Radiology Impressions Transvaginal US 02/08/24 17:39 IMPRESSION: Unremarkable pelvic ultrasound. Intrauterine device noted. Laboratory Results WBC 6.44 10^3/uL (3.29-11.43) 02/08/24 15:17 RBC 3.88 10^6/uL (3.85-5.65) 02/08/24 15:17 Hgb 11.10 g/dL (11.27-16.99) L 02/08/24 15:17 Hct 33.1 % (36-47) L 02/08/24 15:17 MCV 85.3 fl (85-98) 02/08/24 15:17 MCH 28.6 pg (27-33) 02/08/24 15:17 MCHC 33.5 g/dL (30-55) 02/08/24 15:17 RDW 11.9 % (12.1-15.1) L 02/08/24 15:17 Plt Count 225 10^3/cmm (157-399) 02/08/24 15:17 MPV 10.0 fL (7.4-10.4) 02/08/24 15:17 Neut % (Auto) 67.4 % 02/08/24 15:17 Lymph % (Auto) 24.8 % 02/08/24 15:17 [place] % (Auto) 5.9 % 02/08/24 15:17 Eos % (Auto) 1.1 % 02/08/24 15:17 Baso % (Auto) 0.5 % 02/08/24 15:17 Neut # (Auto) 4.34 10^3/uL (1.8-7.7) 02/08/24 15:17 Lymph # (Auto) 1.6 10^3/uL (0.8-4.8) 02/08/24 15:17 [place] # (Auto) 0.4 10^3/uL (0.2-0.9) 02/08/24 15:17 Eos # (Auto) 0.1 10^3/uL (0.0-0.8) 02/08/24 15:17 Baso # (Auto) 0.0 10^3/uL (0.0-0.1) 02/08/24 15:17 Nucleated RBC % (auto) 0 % 02/08/24 15:17 Nucleated RBCs # 0.0 /100WBC 02/08/24 15:17 Sodium 138 mmol/L (136-145) 02/08/24 15:17 Potassium 3.4 mmol/L (3.5-5.1) L 02/08/24 15:17 Chloride 103 mmol/L (98-107) 02/08/24 15:17 Carbon Dioxide 28 mmol/L (22-29) 02/08/24 15:17 Anion Gap 10.4 (5-19) 02/08/24 15:17 BUN 8 mg/dL (6-20) 02/08/24 15:17 Creatinine 0.7 mg/dL (0.5-0.9) 02/08/24 15:17 GFR Calculation 100.4 mL/min (90-130) 02/08/24 15:17 Glucose 109 mg/dL (65-115) 02/08/24 15:17 Calculated Osmolality 285 mOsm/kg (285-295) 02/08/24 15:17 Calcium 8.7 mg/dL (8.5-10.5) 02/08/24 15:17 Total Bilirubin 0.2 mg/dL (0.15-1.2) 02/08/24 15:17 AST 18 U/L (0-32) 02/08/24 15:17 ALT 17 U/L (0-33) 02/08/24 15:17 Alkaline Phosphatase 94 U/L (35-105) 02/08/24 15:17 Total Protein 6.7 g/dL (6.6-8.7) 02/08/24 15:17 Albumin 3.9 g/dL (3.5-5.2) 02/08/24 15:17 Globulin 2.8 g/dL (1.3-4.6) 02/08/24 15:17 Lipase 37 U/L (13-60) 02/08/24 15:17 HCG, Qual Negative (Negative) 02/08/24 15:17 Urine Color Yellow (Yellow) 02/08/24 15:16 Urine Appearance Clear (CLEAR) 02/08/24 15:16 Urine pH 7.0 (5-7) 02/08/24 15:16 Ur Specific [place] 1.015 (1.005-1.030) 02/08/24 15:16 Urine Protein Negative (Negative) 02/08/24 15:16 Urine Glucose (UA) Negative (Normal) 02/08/24 15:16 Urine Ketones Negative (Negative) 02/08/24 15:16 Urine Blood 1+ (Negative) A 02/08/24 15:16 Urine Nitrate Positive (Negative) A 02/08/24 15:16 Urine Bilirubin Negative (Negative) 02/08/24 15:16 Urine Urobilinogen 1.0 mg/dL (Negative) 02/08/24 15:16 Ur Leukocyte Esterase Negative (Negative) 02/08/24 15:16 Urine RBC 3-5 /hpf (0-2) 02/08/24 15:16 Urine WBC 0-5 /hpf (0-5) 02/08/24 15:16 Ur Squamous Epith Cells 0-5 /hpf (0-5) 02/08/24 15:16 Amorphous Sediment Not Reportable 02/08/24 15:16 Urine Bacteria 4+ /hpf (NONE) H 02/08/24 15:16 Hyaline Casts 0.40 /lpf 02/08/24 15:16 All radiology interpretation(s) finalized by discharge Discharge Plan Discharge Patient Disposition: Home Clinical Impression: Pelvic pain Condition: Stable Prescriptions: New oxycodone-acetaminophen [Percocet] 5-325 mg tablet 1 tab PO Q8H PRN (Reason: pain) Qty: 7 0RF No Action amitriptyline 10 mg tablet 10 mg PO DAILY aripiprazole [Abilify] 10 mg tablet 10 mg PO DAILY Qty: 30 1RF Mirena 21 mcg/24 hours (8 yrs) 52 mg intrauterine device See Rx Instructions .ROUTE .COMPLEX Rx Instructions: intrauterinely as directed metoprolol succinate 25 mg tablet extended release 24 hr 12.5 mg PO DAILY Qty: 90 3RF buspirone 5 mg Tablet 5 mg PO BID Discharge Orders: Discharge ED (Routine); Ordered 02/08/24 Ordered By: Pablo Holloway Referrals: Audrey Altman FNP [Primary Care Provider] - 1 week Patient Instructions: Pelvic Pain in Women (ED), Opioid Safety, Pain Management Activity Restrictions/Additional Instructions: Thank you for choosing [facility] for your healthcare needs today. Please realize that you were seen in the emergency department and that we are providing you with an emergency medical screening exam and this may not be a complete and all exclusive of all testing and/or medical workup we may need to determine your element or severity of your illness. It is very important that you follow-up as instructed with your primary care provider or specialist for the additional evaluation and to discuss your medical treatment plan. You may return to the emergency department should you have concerns or if your condition changes or worsens in any way. Coding Level of Care Code ED Raw Stock Drier Tender for Devaughn Mcbride
[2024-02-08 17:35] VITALS: RESP 17
[2024-02-08] MEDS: morphine 4 mg/mL SDV 1 mL IVP (17:35)
[2024-02-08] MEDS: ketorolac 30 mg/mL INJ IVP (17:36)
--- NOTE | 2024-02-08 17:39 | USR_ITS ---
PROCEDURE INFORMATION: Exam: US Pelvis, Transvaginal, Non-Obstetric Exam date and time: 02/08/2024 6:04 PM Age: 28 years old Clinical indication: Pelvic pain; Additional info: Pelvis pain TECHNIQUE: Imaging protocol: Real-time transvaginal pelvic (non-obstetric) ultrasound with image documentation. Transvaginal imaging was used for better evaluation of the endometrium, adnexa, and/or cervix. COMPARISON: US transvaginal [id number] 01/11/2023 3:20 PM FINDINGS: Uterus: Intrauterine device noted. Right ovary/adnexa: Follicular changes in the right ovary. Preserved flow to the right ovary. No right adnexal mass. Left ovary/adnexa: Follicular changes in the left ovary. Preserved flow to the left ovary. No left adnexal mass. Urinary bladder: Urinary bladder is limited. Intraperitoneal space: There is a small amount of likely physiologic free fluid in the pelvis. US/US transvaginal [id number] IMPRESSION: Unremarkable pelvic ultrasound. Intrauterine device noted.
[2024-02-08 17:41] VITALS: BP 117/74; PULSE 81; RESP 17; O2SAT 97
[2024-02-08 18:30] VITALS: BP 108/66; PULSE 73; O2SAT 100
[2024-02-08 19:51] VITALS: BP 102/56; PULSE 78; RESP 18; O2SAT 98
[2024-02-08] MEDS: oxyCODONE-APAP 5-325 mg Tablet 1 TAB PO (19:51)
== END 2024-02-08 19:52 | disposition home or self-care (01) ==
PROVIDERS: Emergency Medicine; Emergency Provider Family Medicine; PCP Nurse Practitioner Family
DX: R10.2 Pelvic and perineal pain (principal); F17.290 Nicotine dependence, other tobacco product, uncomplicated
CPT/HCPCS: 36415; 76830; 80053; 81001; 83690; 84703; 85025; 87077; 87086; 87186; 96374; 96375; 99285; J1885; J2270

== ENCOUNTER 2024-03-05 07:43 | Outpatient (CLI) | payer MEDICAID, SELFPAY ==
--- NOTE | 2024-03-05 07:45 | USCV_ITS ---
Trevor Peters Age: 28 Gender: F : 1995 Exam Date: 03/05/2024 08:03 Ordering Phys: Nell Russell MD ([email or web address]) Technologist: Exam Location: [facility] [place] Indication: palp BP: 134 / 73 HR: 73 Rhythm: Sinus Technical Quality: Adequate MEASUREMENTS (Male / Female) Normal Values 2D ECHO LV Diastolic Diameter PLAX 4.1 cm 4.2 - 5.9 / 3.9 - 5.3 cm IVS Diastolic Thickness 1.0 cm 0.6 - 1.0 / 0.6 - 0.9 cm IVS Systolic Thickness 1.2 cm LVPW Diastolic Thickness 1.1 cm 0.6 - 1.0 / 0.6 - 0.9 cm LVPW Systolic Thickness 1.4 cm LVOT Diameter 2.0 cm LV Ejection Fraction 2D Teich 58.7 % LV Ejection Fraction MOD 4C 70.9 % LV Ejection Fraction MOD 2C 66.5 % LV Ejection Fraction 2C AL 67.2 % LA Diameter 2.9 cm RA Systolic Volume 4C AL 41.6 ml RA Systolic Volume 4C MOD 37.8 ml Aorta at Sinotubular Diameter 2.5 cm IVC Diameter 1.7 cm M-MODE LA Ao Ratio MM 1.3 AV Cusp Separation MM 2.0 cm DOPPLER AV Peak Velocity 112.0 cm/s LVOT Peak Velocity 80.0 cm/s AV Area Cont Eq vti 2.7 cm squared AV Area Cont Eq pk 2.3 cm squared MV Peak Velocity 91.0 cm/s MV Area PHT 4.4 cm squared Mitral E to A Ratio 1.3 TV Peak Velocity 245.0 cm/s TR Peak Velocity 253.0 cm/s TR Peak Gradient 25.6 mmHg TV Peak E Velocity 84.0 cm/s PV Peak Velocity 104.0 cm/s FINDINGS Left Ventricle Normal left ventricular size, systolic function and wall thickness, with no regional wall motion abnormalities. Left ventricular ejection fraction is estimated at 60%. Grade II/IV diastolic dysfunction, moderately elevated filling pressures. Right Ventricle The right ventricle is normal in size and function. Right Atrium The right atrium is normal in size. Left Atrium The left atrium is normal in size. Mitral Valve Structurally normal mitral valve without significant stenosis or prolapse. There is no mitral regurgitation. Aortic Valve Moderate aortic valve calcification. Aortic valve sclerosis without stenosis. No aortic valve stenosis. Trace aortic valve regurgitation. Tricuspid Valve Structurally normal tricuspid valve without significant stenosis or regurgitation. Pulmonary artery systolic pressure is normal. Pulmonic Valve Structurally normal pulmonic valve without significant stenosis. There is no pulmonic regurgitation. Pericardium Normal pericardium without effusion. Aorta Normal ascending aorta dimension. IVC The inferior vena cava appears normal. CONCLUSIONS Normal left ventricular size, systolic function and wall thickness, with no regional wall motion abnormalities. Left ventricular ejection fraction is estimated at 60%. Grade II/IV diastolic dysfunction, moderately elevated filling pressures. No significant valve abnormalities. There is no pericardial effusion. Right atrial pressure is around 5 mm of mercury. Nell Russell MD (Electronically Signed) Final Date: 05 March 2024 19:36 S
== END 2024-03-05 07:44 | disposition home or self-care (01) ==
LOC: RAD 07:43
PROVIDERS: PCP Nurse Practitioner Family; Visit Provider Internal Medicine Cardiovascular Disease
DX: R00.2 Palpitations (principal); R07.9 Chest pain, unspecified; I70.0 Atherosclerosis of aorta; I35.8 Other nonrheumatic aortic valve disorders; R93.1 Abnormal findings on diagnostic imaging of heart and coronary circulation
CPT/HCPCS: 93306

== ENCOUNTER → 2024-06-26 11:46 | Outpatient (BNVA) | payer OTHER, SELFPAY | PROVIDERS: PCP Nurse Practitioner Family; Visit Provider Nurse Practitioner | DX: F41.1 Generalized anxiety disorder (principal); Z79.899 Other long term (current) drug therapy | CPT/HCPCS: 80061; 83036 ==

== ENCOUNTER 2024-09-05 08:19 | Emergency (ER) | payer MEDICAID, SELFPAY ==
[2024-07-02 11:17] VITALS: BP 123/62; BMI 25.5
[2024-09-05] VITALS (7 sets, daily range): BP systolic 98–113; BP diastolic 61–66; PULSE 95–114; RESP 18–20; TEMP 37.1; O2SAT 93–100; BMI 25.3
--- OUTSIDE RECORDS SUMMARY | 2024-09-05 08:26 | XMS_ITS | Patient Health Record ---
Author Organization [facility] Address [address] [place] [address] Care Team Providers Care Aviation Consultant Name Role Phone White Audrey MARTINEZ Primary Care Provider Unavail Connie Gallagher Unavailable [phone] Allergies Allergen (clinical drug ingredient) Drug/Non Drug Allergy documented on EMR Reaction Allergy Type Onset Date Status sulfamethoxazole / trimethoprim Bactrim Unknown Drug Allergy Active citalopram CeleXA Unknown Drug Allergy Active Latex Latex Unknown Allergy Active Reason For Referral No Information Social History Social History Tobacco Use: Social Info Question Answer Notes xTobacco Use/Smoking Additional Findings: Tobacco User e-Cigarette Problems Problem Type SNOMED Code ICD Code Onset Dates Problem Status W/U Status Risk Notes Problem Infection caused by Escherichia coli (36876681) Unspecified Escherichia coli [E. coli] as the cause of diseases classified elsewhere (B96.20) Active confirmed Problem Unspecified genitourinary tract infection in , first trimester (O23.91) Active confirmed Problem Chronic cystitis (15536543) Chronic cystitis (N30.20) Active confirmed Problem Constipation (29615079) Constipation, unspecified constipation type (K59.00) Active confirmed Problem Urinary retention (044542471) Urinary retention (R33.9) Active confirmed Problem History of calculus of kidney (106854767) History of kidney stones (Z87.442) Active confirmed Problem Recurrent urinary tract infection (442757175) Recurrent urinary tract infection (N39.0) Active confirmed Problem Urinary tract infection affecting care of mother in second trimester, antepartum (O23.42) Active confirmed Problem Kidney stone (15384716) Bilateral renal stones (N20.0) Active confirmed Problem Pyelonephritis affecting in third trimester (O23.03) Active confirmed Plan Of Treatment No Information Insurance Providers Payer Name Payer Address Payer Phone Subscriber Number Group Number Insured Name Patient Relationship to Insured Coverage Start Date Coverage End Date [facility] Health Plan Medicaid Replacement [address] [facility] [place] [phone] [id number] Trevor Peters Self - patient is the insured 1 Medical (General) History Medical History History ICD Code Recurrent UTI nephrolithiasis History of recurrent UTIs Z87.440 Surgical History Surgery Date(Month/Year) Kidney stones removal w/ureteral stent p lacement cholecystectomy section 05/2021 Hospitalization History Reason Date(Month/Year) Sepsis from UTI during first
--- OUTSIDE RECORDS SUMMARY | 2024-09-05 08:27 | XMS_ITS | Data Portability ---
Author Organization [facility] Address [address] [place] [phone] Assessment No assessment recorded. Plan of Treatment Reminders Order Date Submit Date Provider Last Modified By Organization Details Last Modified Time Details Appointments None record ed. Lab None record ed. Referral None record ed. Procedures None record ed. Surgeries None record ed. Imaging None record ed. Medication Orders None record ed. Patient TargetsNo targets recorded. Patient InstructionsNo instructions recorded. Reason for Referral None Reported. Problems Name Problem SNOMED Code Status Onset Date Resolution Date Notes Provider Name and Address Organization Details Recorded Time Kidney stone 51048486 Active 022 Hx of Kidney Stones; 10/01/19 22 11:05PM by MICHELLE Underwood, Office Visit; Promoted ; acuity set as *; Not Available [facility] 3 03:07:38 Problem Notes None recorded. Medical Equipment None Reported. Allergies Allergen ID Allergen Name Allergen Category Reaction Reaction Severity Criticality Documentation Date Start Date Code Code System Note Provider Name and Address Organization Details Recorded Time 91170 Celexa medicatio n Not available Not available Not available 09/09/2022 88345 8 RxNorm Comme nt: Recor ded 08/19 3:29P M by Jennifer moya RN, Offic e Visit ; Promo ivan; Chris rg ce: *; Reaso n: Drug aller gy; ; Not Available [facility] 3 02:26:59 78857 Bactrim medicatio n Not available Not available Not available 09/09/2022 40629 9 RxNorm Comme nt: Recor ded 08/19 3:29P M by Jennifer moya RN, Offic e Visit ; Promo ivan; Signi fican ce: *; Reaso n: Drug aller gy; ; Not Available [facility] 3 02:26:59 39005 Latex Exam Gloves medicatio n Not available Not available Not available 09/09/2022 21126 UNK Comme nt: Recor ded 08/19 3:29P M by Jennifer moya RN, Offic e Visit ; Promo vinh rg ce: *; Reaso n: Drug aller gy; ; Not Available [facility] 3 02:26:59 Medications Name Sig Start Date Stop Date Status Note LastModified by Organization Details LastModified Time buspirone 5 mg tablet TAKE 1 TABLET BY MOUTH TWICE DAILY active Not Available Not Available No t Available promethaz ine-DM 6.25 mg-15 mg/5 mL oral syrup every six hours, as needed 12/10 completed vo at/ma; Recorded 02/23/19 23 5:34PM by Edison Beardic al Summary; Refill Quantity : 0; Not Available Not Available Not Available sumatript an 50 mg tablet TAKE ONE TABLET BY MOUTH NEEDED AT ONSET OF HEADACHE AND MAY REPEAT IN ONE HOUR (MAX OF TWO TABS IN TWO HOURS) 12/10 completed Not Available Not Available Not Available ketorolac 30 mg/mL (1 mL) injection solution inject 2ml into THE shoulder , thigh or buttocks ONCE FOR ONE DOSE 12/10 completed Not Available Not Available Not Available amitripty line 10 mg tablet TAKE 2 TABLETS BY MOUTH NIGHTLY active Not Available Not Available No t Available ergocalci ferol (vitamin D2) 1,250 mcg (50,000 unit) capsule TAKE 1 CAPSULE BY MOUTH ONCE A WEEK THEN CHANGE TO VITAMIN D3 DAILY 12/10 completed Not Available Not Available Not Available ondansetr on 4 mg disintegr ating tablet DISSOLVE 1 TABLET IN MOUTH THREE TIMES DAILY NEEDED FOR NAUSEA AND VOMITING 12/10 completed Not Available Not Available Not Available aripipraz ole 5 mg tablet TAKE 1 TABLET BY MOUTH ONCE DAILY 12/10 completed Not Available Not Available Not Available nitrofura ntoin monohydra te/macroc rystals 100 mg capsule TAKE 1 CAPSULE BY MOUTH TWICE DAILY 12/10 completed Not Available Not Available Not Available pregabali n 75 mg capsule TAKE 1 CAPSULE BY MOUTH TWICE DAILY 12/10 completed Not Available Not Available Not Available Vitamin daily 12/10 completed 0; Recorded 08/20/19 22 3:29PM by Jennifer Xie RN, Office Visit; Not Available Not Available Not Available Vitals Date Recorded Body height Body mass index (BMI) Body weight Body temperature Heart rate Oxygen saturation Oxygen saturation in Arterial blood by Pulse oximetry Systolic And Diastolic Provider Name and Address Organization Details Last Updated DateTime 4 170.18 cm 23.7 kg/m2 28538.1 5 g 98.3 [degF] 88 /min 95 % 95 % 112/62 mm[Hg] Soo Kinsey [facility], [place] 4 13:29:57 Social History None recorded. Functional Status None recorded. Mental Status None recorded. Family History Nothing Reported. Medical History No medical history recorded. Gynecological HistoryNo gynecological history recorded. Obstetrics History GPAL:G 0 P 0 0 0 0 Immunizations Vaccine Type Date Status Note Provider Nam e and Address Organization Details Recorded Time Influenza, split virus, trivalent, preservative 7 completed Not Available [facility] 09/09/2022 02:51:33 Past Encounters Encounter ID Performer Location Encounter Start Date Encounter Closed Date Diagnosis/Indication Diagnosis SNOMED-CT Code Diagnosis ICD10 Code Diagnosis Note [id number] MICHELLE LESLIE [facility] [address] [place] [phone] 12/11/2023 13:14:02 12/11/2023 16:55:24 Chest pain 53329397 R07.9 Resolved. Discussed to keep appt with cardiology . If symptoms return then f/u in ER Health Concerns Section Related Observation LastModified by Organization Detai ls LastModified Time None Recorded Concern Status LastModified by Organization Details LastModified Time None Recorded Advance Directives Directive None Recorded Payers Insurance Date Sequence Insurance Name Policy Number Policy Rodriguez Covered Member ID Rodriguez Member ID Guarantor Name 12/12/2023 [facility] (MEDICAID HMO) Trevor Peters [id number] Trevor Peters 12/11/2023 1 [facility] (MEDICAID HMO) Trevor Peters [id number] Trevor Peters Notes Date Note Type Note Provider Name and Address Organization Details Recorded Time 12/11/2023 text/html Angina/Chest PainReported by PatientROS as noted in the HPI walk in ptPt was having chest pain last night, has improved today. wore a heart monitor and now has a referral to a joint yarner but can not be seen until Jan. PCP told her to come and have it checked out. no symptoms currently BOYD SANCHEZ, MICHELLE [address] [place], [address], [facility], [place] 12/11/2023 16:47:55 OBGyn Episode No OBEpisode recorded.
--- OUTSIDE RECORDS SUMMARY | 2024-09-05 08:27 | XMS_ITS | Patient Health Record ---
Author Organization [facility] Address [address] [place] [address] Care Team Providers Care [employer] Launch Commander Name Role Phone Audrey Altman Primary Care Provider HECTOR Garcia Unavailable [phone] RUI DUNBAR Unavailable [phone] Allergies Allergen (clinical drug ingredient) Drug/Non Drug Allergy documented on EMR Reaction Allergy Type Onset Date Status sulfamethoxazole / trimethoprim Bactrim Unknown Drug Allergy Active citalopram CeleXA Unknown Drug Allergy Active Latex Latex Unknown Allergy Active Results Component Value Reference Range Notes Urinalysis, Routine Reviewed date:05/09/2024 10:34:24 AM Interpretation: Performing Lab: Notes/Report: Urine-Color yellow Appearance slightly cloudy Glucose - Bilirubin - Ketones - Specific [place] 1.010 Occult Blood 2+ pH 6.0 Urine Protein - Urobilinogen,Semi-Qn - Nitrite, Urine - WBC Esterase 3+ CULTURE, URINE, ROUTINE (395 ) Reviewed date:05/15/2024 11:09:07 AM Interpretation: Performing Lab:[place], [facility][id number] Shell Luna, [id number] Moy Reina MD Notes/Report: NON-FASTING CULTURE, URINE, ROUTINE SEE NOTE CIPROFLOXACIN R >=4 GENTAMICIN S 2 IMIPENEM S <=0.25 LEVOFLOXACIN R >=8 MEROPENEM S <=0.25 NITROFURANTOIN S <=16 PIP/TAZOBACTAM S <=4 TRIMETHOPRIM/SULFA S <=20 S = Susceptible I = Intermediate R = Resistant NS = Not susceptible SDD = Susceptible Dose Dependent * = Not Tested NR = Not Reported NN = See Therapy Comments THERAPY COMMENTS Note 1: For infections other than uncomplicated UTI caused by E. coli, K. pneumoniae or P. mirabilis: Cefazolin is resistant if CARA > or = 8 mcg/mL. (Distinguishing susceptible versus intermediate for isolates with CARA < or = 4 mcg/mL requires additional testing.) Note 2: For uncomplicated UTI caused by E. coli, K. pneumoniae or P. mirabilis: Cefazolin is susceptible if CARA <32 mcg/mL and predicts susceptible to the oral agents cefaclor, cefdinir, cefpodoxime, cefprozil, cefuroxime, cephalexin and loracarbef. CULTURE, URINE, ROUTINE Micro Number: [id number] Test Status: Final Specimen Source: Voided urine* Specimen Quality: Adequate Result: Greater than 100,000 CFU/mL of Escherichia coli E.coli INT CARA AMOX/CLAVULANATE S <=2 AMP/SULBACTAM S <=2 CEFAZOLIN NR <=4 2 CEFEPIME S <=0.12 CEFTAZIDIME S <=1 CEFTRIAXONE S <=0.25 zzzAbdomen AP Reviewed date:05/09/2024 12:09:26 PM Interpretation: Performing Lab: Notes/Report: See Below For Report Abdomen AP Read See Below For Report Reason For Referral No Information Medications Medication SIG (Take, Route, Fr equency, Duration) Notes Start Date End Date Status Pregabalin 75 MG 1 capsule in the zakiya domingo 1 to 3 hours before bedtime Orally twice a day 07/12/2023 Active busPIRone HCl 5 MG 1 tablet Orally Twice a day Active Amitriptyline HCl 10 MG 1 tablet at bedt luis a Orally Once a day 07/12/2023 Active Problems Problem Type SNOMED Code ICD Code Onset Dates Problem Status W/U Status Risk Notes Problem 04460767 Unspecified Escherichia coli [E. coli] as the cause of diseases classified elsewhere (B96.20) Active confirmed Problem Unspecified genitourinary tract infection in , first trimester (O23.91) Active confirmed Problem 16798070 Bilateral renal stones (N20.0) Active confirmed Problem 72675355244218 Pyelonephritis affecting in third trimester (O23.03) Active confirmed Problem 77905874 Constipation, unspecified constipation type (K59.00) Active confirmed Problem 678161993 Recurrent urinar y tract infection (N39.0) Active confirmed Problem 497281584 History of kidne y stones (Z87.442) Active confirmed Problem 47468123 Chronic cystitis (N30.20) Active confirmed Problem Urinary tract infection affecting care of mother in second trimester, antepartum (O23.42) Active confirmed Problem Kidney stone (57858976) Bilateral nephrolithiasis (N20.0) Active confirmed Problem 135194318 Urinary retentio n (R33.9) Active confirmed Vital Signs Heart Rate 81 /min 05/09/2024 Height-cm 170.18 cm 05/09/2024 Blood pressure diastolic 74 mm Hg 05/09/2024 Weight-kg 72.58 kg 05/09/2024 Height 67 in 05/09/2024 Blood pressure systolic 116 mm Hg 05/09/2024 Weight 160 lbs 05/09/2024 BMI 25.06 kg/m2 05/09/2024 Procedures Procedure Date Ordered Date Performed Result Body Sit e Bladder Scan 05/09/2024 05/09/2024 34 mL Encounters Encounter Location Date Provider Diagnosis [facility], [facility] [address] [place] [address] 11/08/2023 HECTOR JAIN Bilateral nephrolithiasis N20.0 and Chronic cystitis N30.20 [facility], [facility] [address] [place] [address] 05/09/2024 RUI DUNBAR Bilateral nephrolithiasis N20.0 ; Recurrent UTI N39.0 and Dysuria R30.0 [facility], [facility] [address] [place] [address] 02/19/2024 HECTOR JAIN Bilateral renal ston es N20.0 [facility], [facility] [address] [place] [address] 05/12/2024 HECTOR JAIN Assessments Encounter Date Diagnosis (ICD Code) Assessment Notes Treatment Notes Treatment Clinical Notes Section Notes 11/08/2023 Bilateral nephrolithiasis (ICD-10 - N20.0) 28 y/o F with Chronic cystitis and Bilateral Nephrolithiasi s. Denies bothersome with symptoms and wiIll continue surveillance at this time. She will return in 6m with CT/ UA/PVR and see Diaz Dunbar APRN or sooner with any concerns Plan: -RTC 6m with KUB/UA/PVR and see Antwan Dunbar APRN I, Stormy Kapelski, Scribe, am scribing for, and in the presence of, Dr. Jain. I, Dr. Hector Jain, personally performed the services prescribed in this documentation, as scribed by Doreen Tse, in my presence, and it is both accurate and complete. 02/19/2024 Bilateral renal stones (ICD-10 - N20.0) 05/09/2024 Bilateral nephrolithiasis (ICD-10 - N20.0) I have independently reviewed KUB imaging, along with radiologic report. I reviewed images and discussed findings with patient in the exam room. She has known b/l punctate stones based on CT from July 2023, but none are visible on KUB today. Continue general stone prevention guidelines. Repeat surveillance KUB in 1 year. 05/09/2024 Recurrent UTI (ICD-10 - N39.0) Pt with acute UTI symptoms today with abnormal UA. Will send for culture and treat as indicated. She will start intercourse dose prophylaxis. She already has rx, she just never started. If she continues to breakthrough, she will notify our office. Otherwise, RTC in 1 year with UA and KUB. 05/09/2024 Dysuria (ICD-10 - R30.0) 11/08/2023 Chronic cystitis (ICD-10 - N30.20) 28 y/o F with Chronic cystitis and Bilateral Nephrolithiasi s. Denies bothersome with symptoms and wiIll continue surveillance at this time. She will return in 6m with CT/ UA/PVR and see Diaz Dunbar APRN or sooner with any concerns Plan: -RTC 6m with KUB/UA/PVR and see Antwan Dunbar APRN I, Stormy Kapelski, Scribe, am scribing for, and in the presence of, Dr. Jain. I, Dr. Hector Jain, personally performed the services prescribed in this documentation, as scribed by Doreen Tse, in my presence, and it is both accurate and complete. Plan Of Treatment Pending Test Test Name Order Date KUB, X-Ray: Abdomen, Kidney, Urete r, bladder 02/19/2024 [place] [id number] 07/12/19 24 Future Test Test Name Order Date Abdomen [id number] 04/16/2023 Next Appt Details Provider Name:RUI WARD, 05/08/2025 11:30:00 AM, [address] [facility] [place], [address], Insurance Providers Payer Name Payer Address Payer Phone Subscriber Number Group Number Insured Name Patient Relationship to Insured Coverage Start Date Coverage End Date [facility] Plan [address] [place] [address] [id number] Trevor Peters Self - patient is the insured Medical (General) History Medical History History ICD Code Recurrent UTI nephrolithiasis History of recurrent UTIs Z87.440 Surgical History Surgery Date(Month/Year) Kidney stones removal w/ureteral stent p lacement cholecystectomy section 05/2021 Hysterectomy 02/2024 Hospitalization History Reason Date(Month/Year) Sepsis from UTI during first
--- OUTSIDE RECORDS SUMMARY | 2024-09-05 08:27 | XMS_ITS | Patient Health Record ---
Author Organization [facility] Address [address], [place] [id number] Care Team Providers Care Interpretive Program Coordinator Name Role Phone Chris Goodman [phone] Results Component Value Reference Range Notes URINALYSIS WITH REFLEXES Reviewed date:04/15/2024 12:52:40 PM Interpretation: Performing Lab: [facility] Laboratory ([id number]), [address] [place] [address], [id number] Notes/Report: Type of collection? CATHETER Has specimen been collected/obtained? Y URINE COLLECTION CATH URINE COLOR YELLOW URINE APPEARANCE HAZY GLUCOSE NEG NEG KETONES NEG NEG BLOOD 1+ NEG PROTEIN NEG NEG-TRACE NITRITE POS NEG BILIRUBIN NEG NEG SPECIFIC GRAVITY >= 1.030 1.001-1.035 pH 6.0 4.5-8.0 pH units UROBILINOGEN 0.2 <1.0 E.U. LEUKOCYTE ESTERASE TRACE NEG TYPE & SCREEN Reviewed date:04/15/2024 12:52:29 PM Interpretation: Performing Lab: [facility] Laboratory ([id number]), [address] [place] [address], [id number] Notes/Report: ABO TYPE O Rh TYPE NEG ANTIBODY SCREEN NEGATIVE NEG URINE MICROSCOPIC EXAM ONLY Reviewed date:04/15/2024 12:52:51 PM Interpretation: Performing Lab: [facility] Laboratory ([id number]), [address] [place] [address], [id number] Notes/Report: Has specimen been collected/obtained? Y Type of collection? CATHETER URINE RBC 0-5 URINE WBC 10-25 0-5 /hpf URINE BACTERIA MANY URINE CULTURE REFLEX CATHETER SQUAMOUS EPITHELIALS FEW MUCUS FEW CULTURE, URINE CATH Reviewed date:04/15/2024 12:53:07 PM Interpretation: Performing Lab: [facility] Laboratory ([id number]), [address] [place] [address], [id number] Notes/Report: CULTURE, URINE CATH 02/26/2024 15:04 Source: ATH Organism 2 ESCHERICHIA COLI COLONY COUNT >100,000 AMOXICILLIN/CA S AMPICILLIN S AMPICILLIN/SULBACTAM S CEFAZOLIN S CEFEPIME S CEFTAZIDIME S CEFTRIAXONE S CIPROFLOXACIN R ERTAPENEM S GENTAMICIN S IMIPENEM S LEVOFLOXACIN R NITROFURANTOIN S TOBRAMYCIN S TRIMETHOPRIM/SULFAMETHOX AZOLE S PIPERACILLIN/TAZOBACTAM S TEST,URINE QUAL Reviewed date:04/15/2024 12:52:21 PM Interpretation: Performing Lab: [facility] Laboratory ([id number]), [address] [place] [address], [id number] Notes/Report: Has specimen been collected/obtained? Y URINE PREG TEST NEG CBC W/ AUTO DIFF* Reviewed date:04/15/2024 12:52:59 PM Interpretation: Performing Lab: [facility] Laboratory ([id number]), [address] [place] [address], [address] Notes/Report: WHITE BLOOD COUNT 13.04 3.98-10.04 10 3/uL RED BLOOD COUNT 4.20 3.93-5.22 10 6/uL HEMOGLOBIN 12.0 11.2-15.7 g/dL HEMATOCRIT 35.8 34.1-44.9 % MEAN CORPUSCULAR VOLUME 85.2 79.4-94.8 fL MEAN CORPUSCULAR HEMOGLOBIN 28.6 25.6-32.2 pg MEAN CORPUSCULAR HGB CONC 33.5 32.2-35.5 g/dL RED CELL DISTRIBUTION WIDTH 12.0 11.7-14.4 % PLATELET COUNT 188 182-369 10 3/uL MEAN PLATELET VOLUME 10.4 9.4-12.3 fL NEUTROPHILS % (AUTO) 93.4 34.0-71.1 % LYMPHOCYTES % (AUTO) 5.2 19.3-51.7 % MONOCYTES % (AUTO) 0.8 4.7-12.5 % EOSINOPHILS % (AUTO) 0.0 0.7-5.8 % BASOPHILS % (AUTO) 0.1 0-1 % NEUTROPHILS # (AUTO) 12.2 1.56-6.13 10 3/uL LYMPHOCYTES # (AUTO) 0.7 1.18-3.74 10 3/uL MONOCYTES # (AUTO) 0.1 0.24-0.86 10 3/uL EOSINOPHILS # (AUTO) 0.0 0.7-5.8 10 3/uL BASOPHILS # (AUTO) 0.0 0.01-0.08 10 3/uL Reason For Referral No Information Encounters Encounter Location Date Provider Diagnosis [facility] Medicine Group 4 [facility] [place] [address] 02/26/2024 Chris Goodman Plan Of Treatment No Information
--- OUTSIDE RECORDS SUMMARY | 2024-09-05 08:27 | XMS_ITS | Clinical Summary ---
Author Organization [facility] Address [address] [place] [address] Phone Care Team Providers Care Licensed Nursing Assistant Name Role Phone Unavailable Primary Care Provider Unavailabl e Social History Tobacco Use Types Packs/Day Years Used Date Smoking Tobacco: Never Assessed Comments Unknown Sex and Gender Information Value Date Recorded Sex Assigned at Not on file Legal Sex Female 3:49 PM CDT Gender Identity Not on file Sexual Orientation Not on file Plan of Treatment Health Maintenance Due Date Last Done Comments HPV VACCINES (1 - 3-dose series) 10/01/2011 DTAP/TDAP/TD VACCINES (1 - Tdap) 10/01/2015 HEPATITIS B VACCINES (1 of 3 - 19+ 3-dose series) 09/12 CERVICAL CANCER SCREENING 2017 HPV/Cotest (21-29) 2017 PAP SMEAR 2017 INFLUENZA VACCINE (#1) 2024 Insurance [facility] MEDICAID
[2024-09-05 08:41] LABS: Hematocrit 34.0 % (36-47); Hemoglobin 11.60 g/dL (11.27-16.99); Mean Corpuscular HGB Conc 34.1 g/dL (30-55); Mean Corpuscular Hemoglobin 28.5 pg (27-33); Mean Corpuscular Volume 83.5 fl (85-98); Nucleated Red Blood Cells % 0 %; Platelet Count 203 10^3/cmm (157-399); Red Blood Count 4.07 10^6/uL (3.85-5.65); White Blood Count 12.92 10^3/uL (3.29-11.43)
[2024-09-05 08:43] LABS: Glucose Urine UA Negative (Normal); Nitrate Urine Negative (Negative); Specific Gravity, Urine 1.014 (1.005-1.030)
[2024-09-05 08:46] LABS: Add Urine Microscopic? YES
[2024-09-05 08:56] LABS: Alanine Aminotransferase 15 U/L (0-33); Albumin Level 4.3 g/dL (3.5-5.2); Alkaline Phosphatase 97 U/L (35-105); Anion Gap 16.1 (5-19); Aspartate Amino Transferase 20 U/L (0-32); Blood Urea Nitrogen 5 mg/dL (6-20); Calcium 9.0 mg/dL (8.5-10.5); Carbon Dioxide 24 mmol/L (22-29); Chloride 100 mmol/L (98-107); Creatinine Clr Calc Pharmacy 147.5275; Globulin 3.4 g/dL (1.3-4.6); Glucose 93 mg/dL (65-115); HCG, Serum Qual Negative (Negative); Osmolality Calculated 281 mOsm/kg (285-295); Potassium 3.1 mmol/L (3.5-5.1); Sodium 137 mmol/L (136-145); Total Protein 7.7 g/dL (6.6-8.7)
--- NOTE | 2024-09-05 09:03 | ED_ITS ---
HPI - Back Pain/Injury 2 General: Chief Complaint: Back Pain/Injury Stated Complaint: Rt. kidney painful Time Seen by Provider: 09/05/24 08:23 History of Present Illness: 28-year-old female presents emergency ro om complaining abdominal pain for the last 3 days. Nausea radiates into her back. Patient states she has stones within the kidney but have not began to pass they have been monitoring those for some time now she has had recurrent urinary tract infections no fever no hematuria. Associated symptoms: Reports abdominal pain; Deny chills, dysuria, fever(s) or urinary urgency Related Data Home Medications ?Medication ?Instructions ?Recorded ?Confirmed pietfic-qncsivoajjjpv-exezkhtn 250 4 tab PO Q6H PRN Pa in 09/05/24 09/05/24 mg-250 mg-65 mg tablet (Excedrin Migraine) ibuprofen 200 mg tablet (Advil) 600 mg PO Q6H PRN Feve r Or Pain 09/05/24 09/05/24 Previous Rx's ?Medication ?Instructions ?Recorded dextroamphetamine-amphetamine ER 10 mg PO DAILY 30 day s #30 caps 09/01/24 10 mg 24hr capsule,extend release (Adderall XR) cefdinir 300 mg capsule 300 mg PO BID #14 caps 09/05 Allergies Allergy/AdvReac Type Severity Reaction Status Date / Time citalopram (From Celexa) Allergy ALGY-Rash Verified 09/05/24 08:27 latex Allergy ALGY-Rash Verified 09/05/24 08:27 sulfamethoxazole (From Allergy Unknown Verified 09/05/24 08:27 Bactrim) trimethoprim (From Bactrim) Allergy GI bleed Verified 09/05/24 08:27 Review of Systems 2 Const: Denies: fever(s) or chills Card: Denies: chest pain Resp: Denies: dyspnea GI: Reports: abdominal pain : Reports: flank pain; Denies: dysuria, urinary frequency or urinary urgency Musc: Denies: neck pain or back pain Skin/Breast: Denies: rash PFSH ED 2 PFSH: Medical History ADHD, predominantly inattentive type Psychiatric care Generalized anxiety disorder Mood disorder On combination antipsychotic drug therapy Renal stones Recurrent UTI Pyelonephritis Renal and ureteric calculus Surgical History Status post colonoscopy (10/07/19) Hx of cholecystectomy History of ureter stent Family History Mother Asthma Heart murmur Atrial fibrillation Other Glaucoma Denies family history of Anesthesia complication Bleeding disorder Social History Smoking and tobacco/nicotine status: current every day tobacco/nicotine user (vapes) e-cigarettes E-Cigarette Details: e-cigarette and with nicotine E- cig/vape details: 20,000 last 2 weeks Quit status (tobacco/nicotine): considering quitting Second hand smoke exposure: Yes Alcohol intake: former 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/quit date alcohol: 2023 Substance/Drug Use: current Substance/Drug use frequency: daily Other substance/drug use details: for anxiety and migraines - vape from the store Adopted: No Caregiver/support person: No Lives independently: No Household members: spouse and children Housing: House Marital status: Number of children: 3 Highest education level completed: Associate Degree: Occupational, Technical, Vocational Program Education level details: Associates degree in 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 development Current occupational status: unemployed Pets and animals: Yes Pets & animals: dog(s) and farm animals Farm Animals: chicken/turkey/other poultry Pets & animal details: rabbits Leisure activites: music and other Leisure activities details: horseback riding, sleeping Sexually active: Yes () Do you think of yourself as: Straight/Heterosexual Current gender identity: Female Miladis/Synagogue: Hindu Special miladis needs: No Agree to transfusion: Yes Female Reproductive History: Para: 3 Spontaneous abortions: Yes (X1) Physical Exam 2 Const: GENERAL APPEARANCE: cooperative ORIENTATION/CONSCIOUSNESS: Yes awake, Yes oriented to person, Yes oriented to place and Yes oriented to time HENMT: COMMON NORMALS: normocephalic, atraumatic and hearing grossly normal bilaterally HEAD & SCALP: normocephalic and atraumatic Resp: COMMON NORMALS: normal respiratory effort, No retractions, No use of accessory muscles and clear to auscultation bilaterally AUSCULTATION: clear to auscultation bilaterally Cardio: COMMON NORMALS: regular rate, regular rhythm and No murmurs present (Cardio) RATE: regular rate RHYTHM: regular rhythm GI: COMMON NORMALS: Soft to palpation and No hepatosplenomegaly present A USCULTATION: Yes normoactive bowel sounds PALPATION: Yes Soft to palpation, No Tenderness to palpation present (GI), No Guarding due to palpation present (GI) and Yes No hepatosplenomegaly present : BLADDER/KIDNEY EXAM: Yes CVA tenderness on the right Back/Pelvis: GENERAL BACK: Yes CVA tenderness Extremity: COMMON NORMALS: normal to inspection, capillary refill normal, no clubbing, cyanosis or edema, no calf tenderness and no pedal edema Neuro: SENSORIUM/ORIENTATION: Yes oriented to person, Yes oriented to place and Yes oriented to time Skin: COMMON NORMALS: no rashes or lesions noted GENERAL SKIN EXAM: no rashes or lesions noted Course 2 Vital Signs: Vital signs: Vital Signs Temperature 98.7 F 09/05/24 08:27 Pulse Rate 95 09/05/24 12:18 Respiratory Rate 20 H 09/05/24 12:18 Blood Pressure 113/66 09/05/24 12:18 Pulse Oximetry 98 09/05/24 12:18 Oxygen Delivery Me thod Room Air 09/05/24 08:27 MDM - Back Pain/Injury Medical Decision Making CT shows stones in the kidney nothing within the ureter. She does have some hematuria on her UA greater than 100 red blood cells with 11-20 white trace leukocyte Estrace. Patient given a dose of Rocephin here will start on cefdinir. Reviewed her previous urine cultures which showed resistance to quinolones only. Follow-up with primary care. Medical Records I reviewed the patient's medical records. Labs I reviewed the patient's lab results. 09/05/24 08:30 09/05/24 08:30 Radiology Impressions Abdomen/Pelvis CT 09/05/24 09:14 IMPRESSION: 1. Normal appendix. 2. No renal obstruction. 3. There are very small bilateral nonobstructing renal calcifications with no perinephric stranding. No ureteral calcification. 4. Prior cholecystectomy. 5. No ascites or adenopathy. Laboratory Results WBC 12.92 10^3/uL (3.29-11.43) H 09/05/24 08:30 RBC 4.07 10^6/uL (3.85-5.65) 09/05/24 08:30 Hgb 11.60 g/dL (11.27-16.99) 09/05/24 08:30 Hct 34.0 % (36-47) L 09/05/24 08:30 MCV 83.5 fl (85-98) L 09/05/24 08:30 MCH 28.5 pg (27-33) 09/05/24 08:30 MCHC 34.1 g/dL (30-55) 09/05/24 08:30 RDW 12.0 % (12.1-15.1) L 09/05/24 08:30 Plt Count 203 10^3/cmm (157-399) 09/05/24 08:30 MPV 10.5 fL (7.4-10.4) H 09/05/24 08:30 Neut % (Auto) 82.2 % 09/05/24 08:30 Lymph % (Auto) 9.7 % 09/05/24 08:30 [place] % (Auto) 6.3 % 09/05/24 08:30 Eos % (Auto) 0.9 % 09/05/24 08:30 Baso % (Auto) 0.4 % 09/05/24 08:30 Neut # (Auto) 10.63 10^3/uL (1.8-7.7) H 09/05/24 08:30 Lymph # (Auto) 1.3 10^3/uL (0.8-4.8) 09/05/24 08:30 [place] # (Auto) 0.8 10^3/uL (0.2-0.9) 09/05/24 08:30 Eos # (Auto) 0.1 10^3/uL (0.0-0.8) 09/05/24 08:30 Baso # (Auto) 0.1 10^3/uL (0.0-0.1) 09/05/24 08:30 Nucleated RBC % (auto) 0 % 09/05/24 08:30 Nucleated RBCs # 0.0 /100WBC 09/05/24 08:30 Sodium 137 mmol/L (136-145) 09/05/24 08:30 Potassium 3.1 mmol/L (3.5-5.1) L 09/05/24 08:30 Chloride 100 mmol/L (98-107) 09/05/24 08:30 Carbon Dioxide 24 mmol/L (22-29) 09/05/24 08:30 Anion Gap 16.1 (5-19) 09/05/24 08:30 BUN 5 mg/dL (6-20) L 09/05/24 08:30 Creatinine 0.6 mg/dL (0.5-0.9) 09/05/24 08:30 GFR Calculation 119.9 mL/min (90-130) 09/05/24 08:30 Glucose 93 mg/dL (65-115) 09/05/24 08:30 Calculated Osmolality 281 mOsm/kg (285-295) L 09/05/24 08:30 Lactic Acid 0.9 mmol/L (0.5-2.2) 09/05/24 08:30 Calcium 9.0 mg/dL (8.5-10.5) 09/05/24 08:30 Total Bilirubin 0.6 mg/dL (0.15-1.2) 09/05/24 08:30 AST 20 U/L (0-32) 09/05/24 08:30 ALT 15 U/L (0-33) 09/05/24 08:30 Alkaline Phosphatase 97 U/L (35-105) 09/05/24 08:30 Total Protein 7.7 g/dL (6.6-8.7) 09/05/24 08:30 Albumin 4.3 g/dL (3.5-5.2) 09/05/24 08:30 Globulin 3.4 g/dL (1.3-4.6) 09/05/24 08:30 HCG, Qual Negative (Negative) 09/05/24 08:30 Urine Color Yellow (Yellow) 09/05/24 08:30 Urine Appearance Clear (CLEAR) 09/05/24 08:30 Urine pH 8.0 (5-7) A 09/05/24 08:30 Ur Specific [place] 1.014 (1.005-1.030) 09/05/24 08:30 Urine Protein 2+ (Negative) A 09/05/24 08:30 Urine Glucose (UA) Negative (Normal) 09/05/24 08:30 Urine Ketones 1+ (Negative) H 09/05/24 08:30 Urine Blood 1+ (Negative) A 09/05/24 08:30 Urine Nitrate Negative (Negative) 09/05/24 08:30 Urine Bilirubin Negative (Negative) 09/05/24 08:30 Urine Urobilinogen 1.0 mg/dL (Negative) 09/05/24 08:30 Ur Leukocyte Esterase Trace (Negative) A 09/05/24 08:30 Urine RBC >100 /hpf (0-2) H 09/05/24 08:30 Urine WBC 11-20 /hpf (0-5) H 09/05/24 08:30 Ur Squamous Epith Cells 6-10 /hpf (0-5) 09/05/24 08:30 Amorphous Sediment Not Reportable 09/05/24 08:30 Urine Bacteria None seen /hpf (NONE) 09/05/24 08:30 Hyaline Casts 1.21 /lpf 09/05/24 08:30 All radiology interpretation(s) finalized by discharge Discharge Plan Discharge Patient Disposition: Home Clinical Impression: Cystitis Condition: Stable Prescriptions: New cefdinir 300 mg capsule 300 mg PO BID Qty: 14 0RF No Action dextroamphetamine-amphetamine [Adderall XR] 10 mg capsule,extended release 24hr 10 mg PO DAILY 30 Days Qty: 30 0RF ibuprofen [Advil] 200 mg Tablet 600 mg PO Q6H PRN (Reason: Fever Or Pain) Excedrin Migraine 250-250-65 mg Tablet 4 tab PO Q6H PRN (Reason: Pain) Discharge Orders: Discharge ED (Routine); Ordered 09/05/24 Ordered By: Sorin Uribe Referrals: Elizabeth Baron DO [Primary Care Provider, [facility]NER [facility] OPERATOR] Discharge Diet: Usual diet Discharge Activity: Resume usual activity Patient Instructions: Opioid Safety, Pain Management, Patient Portal & Lobo Instructions Activity Restrictions/Additional Instructions: [facility] It is very important that you follow up as instructed or that you return to the Emergency Department should you have concerns or if your condition changes or worsens in any way. You were seen in the emergency room with complaints of flank pain. There is no sign of any ureterolithiasis (kidney stones that are making their way to the bladder) Print Language: Divehi Coding Level of Care Code ED Mri Manager for Devaughn Mcbride
--- NOTE | 2024-09-05 09:14 | CT_ITS ---
WS: [id number] CT ABDOMEN AND PELVIS NONCONTRAST HISTORY: flank pain TECHNIQUE: Imaging performed through the abdomen and pelvis. Coronal and sagittal reformats are submitted. All CT scans at [facility] use at least one of these dose optimization techniques: automated exposure control; mA and/or kV adjustment per patient size (includes targeted exams where dose is matched to clinical indication); or iterative reconstruction. DLP: 510.01 mGy.cm COMPARISON: 05/13/2023 Lower thorax: Lung bases are clear. Visualized heart is normal. No hiatal hernia. Liver: Normal size liver. No mass or bile duct dilatation. Gallbladder: Prior cholecystectomy. Pancreas: Normal size and attenuation. Normal pancreatic duct. No pancreatitis or mass. Spleen: Normal. Adrenal glands: Normal. No mass. Right kidney: Nonobstructing tiny calcifications. No perinephric stranding. No hydronephrosis or hydroureter. Left kidney: Normal size kidney. 3 mm nonobstructing stone in the upper pole. Tiny calcification lower pole. No perinephric stranding or obstruction. No hydronephrosis or hydroureter. Aorta: Normal abdominal aorta, no aneurysm or atherosclerosis. No free fluid, intraperitoneal air or significant lymphadenopathy. GI tract: Normal noncontrast imaging of the stomach, small bowel and colon. No obstruction or wall thickening. Normal appendix. Appendix is deep within the RIGHT pelvis. Abdominal wall: Small umbilical hernia contains fat only. Postsurgical scarring along the anterior pelvis from prior hysterectomy. Pelvis: No free fluid. Prior hysterectomy. Bladder wall is mildly thickened but this is due to under distention. Osseous structures: Unremarkable. CT/CT kidney stone [id number] IMPRESSION: 1. Normal appendix. 2. No renal obstruction. 3. There are very small bilateral nonobstructing renal calcifications with no perinephric stranding. No ureteral calcification. 4. Prior cholecystectomy. 5. No ascites or adenopathy.
[2024-09-05] MEDS: ondansetron 2 mg/ML SDV 2 mL 4 MG IVP (10:12)
[2024-09-05] MEDS: morphine 4 mg/mL SDV 1 mL IVP (10:14)
[2024-09-05] MEDS: cefTRIAXone 1,000 mg SDV 1000 MG IVP (11:07)
[2024-09-05 11:22] LABS: Lactic Sepsis W/Reflex 0.9 mmol/L (0.5-2.2)
== END 2024-09-05 12:18 | disposition home or self-care (01) ==
PROVIDERS: Emergency Provider Family Medicine; PCP Family Medicine
DX: N30.90 Cystitis, unspecified without hematuria (principal); F17.290 Nicotine dependence, other tobacco product, uncomplicated
CPT/HCPCS: 74176; 80053; 81001; 83605; 84703; 85025; 87077; 87086; 87186; 96374; 96375; 99285; J0696; J2270; J2405; J7030

== ENCOUNTER → 2024-12-08 13:34 | Outpatient (BNVA) | payer OTHER, SELFPAY ==
[2024-07-02 11:17] VITALS: BP 123/62; BMI 25.5
== END ==
PROVIDERS: PCP Family Medicine; Visit Provider Nurse Practitioner
DX: Z02.83 Encounter for blood-alcohol and blood-drug test (principal)
CPT/HCPCS: 80306

== ENCOUNTER 2024-12-16 14:01 | Outpatient (CLI) | payer OTHER, SELFPAY ==
[2024-07-02 11:17] VITALS: BP 123/62; BMI 25.5
--- NOTE | 2024-12-16 14:14 | XR_ITS ---
WS: [id number] Right knee, 3 views, 12/16/2024 Clinical Data: PAIN IN R KNEE Comparison: None. Findings: No fractures or dislocations are seen. The joint spaces are normal. The patella is intact. The soft tissues are unremarkable. XR/XR knee RT 4V [id number] Impression: Negative right knee.
== END 2024-12-16 14:02 | disposition home or self-care (01) ==
PROVIDERS: PCP Family Medicine; Visit Provider Family Medicine
DX: M25.561 Pain in right knee (principal)
CPT/HCPCS: 73564